=== PATIENT | female | born 1965 | race Caucasian/White ===

== ENCOUNTER 2019-10-12 17:25 | Emergency (ER) | payer BC, SELFPAY ==
--- NOTE | ~2019-10-12 | XR_ITS ---
EXAMINATION: XR chest 2V DATE: 10/12/2019 18:54 INDICATION: Racing heart. TECHNIQUE: PA and lateral views of the chest were obtained. COMPARISON: None FINDINGS: Mild biapical pleural-parenchymal scarring. Additional mild atelectasis/scarring at the right costoph renic angle. Small calcified nodules in the left midlung zone consistent with old granulomatous disea se. No pulmonary edema, pleural effusion or pneumothorax. The cardiomediastinal silhouette is normal. Mild thoracic spondylosis. IMPRESSION: 1. No acute cardiopulmonary disease. Reviewed, dictated and finalized at location A. WAY SIGNAL OPERATOR
--- NOTE | 2019-10-12 17:34 | ECG_ITS ---
Measurements Intervals [place] Rate: 108 P: 74 MO: 147 QRS: 63 QRSD: 86 T: 42 QT: 324 QTc: 435 Interpretive Statements SINUS TACHYCARDIA POSSIBLE LEFT ATRIAL ENLARGEMENT BASELINE WANDER- I, II, AVR, AVL, AVF ABNORMAL ECG Electronically Signed On 10-12-2019 18:31:55 INSULATION EXTRUDER OPERATOR by Faizan Covarrubias D.O.
[2019-10-12 17:46] VITALS: BP 135/95; PULSE 105; PULSE 108; RESP 15; TEMP 37; O2SAT 100
--- NOTE | 2019-10-12 18:05 | ED.ARRPALP ---
HPI - Arrhythmia/Palpitations General Chief Complaint: Arrhythmia/Palpitations Stated Complaint: heart racing Time Seen by Provider: 10/12/19 18:02 Source: patient and RN notes reviewed Mode of arrival: other Limitations: no limitations History of Present Illness HPI narrative: Pt is a 54 y/o female who presents to the ED with c/o heart racing that began this morning at 2 AM. Pt notes that her sx woke her up in the middle of the night and her sx were constant until 5 minutes ago. Pt states that her sx could be caused by her stress. Pt reports a similar episode, but she states that her sx lasted longer this episode. She recently got back from a vacation in [place]. Pt also reports a low appetite and sinus congestion, but denies dizziness, SOB, CP, fever, sore throat, diarrhea, and ear pain currently. complaint: heart racing Onset (ago): hour(s) Duration: now resolved Context: awoke with symptoms Associated symptoms: other (low appetite, sinus congestion) Treatments prior to arrival: other (none) Related Data Allergies Allergy/AdvReac Type Severity Reaction Status Date / Time No Known Allergies Allergy Uncoded 07/14/19 17:43 Review of Systems Review of Systems: All systems reviewed & are unremarkable except as noted in HPI and below Constitutional: Constitutional: Denies fever(s) and Reports poor appetite ENT: Denies otalgia (currently), Denies sore throat and Reports other (sinus congestion) Cardiovascular: Cardiovascular: Denies chest pain and Reports other (heart racing) Respiratory: Respiratory: Denies dyspnea Neurologic: Denies dizziness PMF Past Medical History Medical History (Updated 10/13/19 @ 00:00 by Jana Bowman) Healthy adult Surgical History Surgical History (Updated 10/12/19 @ 18:43 by Amanda Duron) History of hysterectomy Hx of tonsillectomy Family History Family History (Updated 04/24/16 @ 23:21 by DOCTOR UNKNOWN) Father Hypertension Mother Patient's mother is in good health Sibling Patient's sister is in good health Social History Social History (Updated 10/12/19 @ 18:39 by Amanda Duron) Smoking packs per day: 1 Smoking cigarettes per day: 20.0 Smoking status: Current every day smoker Tobacco type: cigarettes Alcohol intake: never Gender identity (if verbalized by the patient): Female Exam Const: General: no acute distress and alert Orientation/consciousness: patient oriented x3 HENMT: Head: normocephalic and atraumatic Ears: external ears normal, TM normal on the right and TM abnormal obstructed by cerumen (able to see small area of TM And it appears erythematous) on the left Mouth: Yes Normal oral and palatal mucosa present and Yes other (dry lips) Eyes: Conjunctivae: conjunctivae normal Pupils: Equal, round and reactive pupils present EOM: EOMs intact bilaterally Neck: Neck: normal visual inspection and no lymphadenopathy Chest: Chest palpation & inspection: normal inspection of the chest Resp: Effort & Inspection: normal respiratory effort, no retractions, not tachypneic and no use of accessory muscles Auscultation: clear to auscultation bilaterally Cardio: Rate: regular rate Rhythm: regular rhythm Heart sounds: no murmurs GI: Inspection: normal to inspection and non-distended GI Palp: No abdominal tenderness Auscultation: normal bowel sounds Skin: General skin exam: normal color Rashes: no rashes Neuro: General: patient oriented x3 and moves all extremities Course Reevaluation(s) Reevaluation #1: I Discussed with patient that labs are unremarkable other then mildly elevated wbc. She is having sinus pressure, headache and left ear pain with redness. Will start antibiotics. Date: 10/12/19 Time: 19:50 Vital Signs Vital signs: Vital Signs Temperature 98.6 F 10/12/19 17:46 Pulse Rate 108 H 10/12/19 17:46 Respiratory Rate 15 10/12/19 17:46 Blood Pressure 135/95 H 10/12/19 17:46 Pulse Oximetry
[2019-10-12 18:33] VITALS: BP 100/70; PULSE 102; RESP 20; O2SAT 97
[2019-10-12] MEDS: SODIUM CHLORIDE 0.9% IV 1,000 ML 999 ML IV CONT (18:33)
[2019-10-12 18:34] LABS: Basophils Absolute Auto 0.1 K/mm3 (0.0-0.1); Basophils Percent Auto 0.4 % (0.2-1.2); Eosinophils Percent Auto 0.2 % (0-4.4); Hemoglobin 15.2 g/dL (12.0-15.0); Immature Granulocyte Absolute 0.04 K/mm3 (0.00-0.031); Immature Granulocyte Percent A 0.3 % (0-0.5); Lymphocytes Absolute Auto 2.47 K/mm3 (0.9-3.2); Lymphocytes Percent Auto 19.4 % (18.3-44.2); Mean Corpuscular HGB Conc 32.3 g/dl (32-36); Mean Corpuscular Hemoglobin 29.6 pg (26-34); Mean Corpuscular Volume 91.4 fl (80-100); Mean Platelet Volume 10.5 fl (7.4-10.4); Monocytes Absolute Auto 0.9 K/mm3 (0.1-0.6); Monocytes Percent Auto 7.1 % (2.6-8.5); Neutrophils Absolute Auto 9.3 K/mm3 (1.3-6.7); Neutrophils Percent Auto 72.6 % (45.5-73.1); Platelet Count Result 321 k/mm3 (150-375); Red Blood Count 5.14 M/mm3 (4.2-5.4); Red Cell Distribution Width 12.7 % (11.5-14.5); White Blood Count 12.7 K/mm3 (4.5-10.0)
[2019-10-12 18:46] LABS: Alanine Aminotransferase 20 U/L (4-35); Albumin Level 4.9 g/dL (3.5-5.1); Alkaline Phosphatase 144 U/L (38-126); Aspartate Amino Transferase 24 U/L (14-36); Bilirubin,Total 0.3 mg/dL (0.2-1.3); Blood Urea Nitrogen 11 mg/dL (7-17); Carbon Dioxide 24 mmol/L (22-30); Chloride 103 mmol/L (98-107); Estimated CRCL calculation 92 ml/min; Estimated Glomerular Filt Rate > 60; Glucose 97 mg/dL (65-105); Magnesium 2.1 mg/dL (1.6-2.3); Potassium 3.5 mmol/L (3.4-5.0); Sodium 140 mmol/L (137-145)
[2019-10-12 19:03] LABS: Add Urine Microscopic? YES; Appearance Urine Clear (Clear); Bilirubin Urine Negative (Negative); Blood Urine 1+ (Negative); Color Urine Colorless (Yellow); Glucose Urine UA Negative (Negative); Ketones Urine Trace mg/dL (Negative); Leukocyte Esterase Ur Negative LEU/UL (Negative); Nitrate Urine Negative (Negative); Protein Urine Negative (Negative); RBC Urine 0-2 /hpf (0-2); Urobilinogen Urine Negative mg/dL (<2.0); WBC Urine 0-3 /hpf
[2019-10-12 19:13] LABS: Specific Grav Ur 1.004 (1.001-1.035)
[2019-10-12 19:20] LABS: D Dimer 0.27 ug/mL (<0.48)
[2019-10-12 20:13] VITALS: BP 104/68; PULSE 98; RESP 18; O2SAT 98
--- NOTE | 2019-11-06 13:40 | PC.NURSE ---
LATE ENTRY This note is being entered to document information to the patient's record. The following information was omitted on [10/12/2019], by [Hema Pineda RN. NS stopped at 1930
--- NOTE | 2019-11-06 13:45 | PC.NURSE ---
LATE ENTRY This note is being entered to document information to the patient's record. The following information was omitted on [10/12/2019], by [caitlyn]. NS complete at 1933.
== END 2019-10-12 20:16 | disposition home or self-care (01) ==
PROVIDERS: Emergency Provider General Practice; PCP Physician Assistant
DX: R00.2 Palpitations (principal); J06.9 Acute upper respiratory infection, unspecified; F17.210 Nicotine dependence, cigarettes, uncomplicated; R00.0 Tachycardia, unspecified; R94.31 Abnormal electrocardiogram [ECG] [EKG]
CPT/HCPCS: 36415; 71046; 80053; 81001; 83735; 84443; 85025; 85380; 93005; 96360; 99283; J7030

== ENCOUNTER 2020-08-15 06:53 | Outpatient (NON) | payer BC, SELFPAY ==
[2020-08-15 21:01] LABS: SARS-CoV-2 RNA PCR Negative
== END 2020-08-15 06:54 ==
PROVIDERS: PCP Physician Assistant; Visit Provider Physician Assistant
DX: R09.81 Nasal congestion (principal); Z20.828 Contact with and (suspected) exposure to other viral communicable diseases
CPT/HCPCS: 87635; C9803; U0003

== ENCOUNTER 2022-07-16 10:23 | Outpatient (CLI) | payer BC, SELFPAY ==
--- NOTE | ~2022-07-16 | XR_ITS ---
EXAMINATION: XR abdomen/kub 1V INDICATION: Right lower quadrant pain TECHNIQUE: Supine views of the abdomen were obtained on 2 radiographs. COMPARISON: Right lower quadrant pain FINDINGS: The bowel gas pattern is normal. No dilated loops of bowel are evident. There is questionab le hepatomegaly. The visualized lung bases are clear. There is mild osteoarthritis of the hips. Phleb oliths are noted in the pelvis. IMPRESSION: 1. No radiographic correlate for the patient's symptoms. 2. Possible hepatomegaly. Reviewed, dictated and finalized at location B.
[2022-07-16 11:25] LABS: Hematocrit 46.9 % (37.0-47.0); Hemoglobin 15.6 g/dL (12.0-15.0); Mean Corpuscular HGB Conc 33.3 g/dl (32-36); Mean Corpuscular Hemoglobin 30.9 pg (26-34); Mean Corpuscular Volume 92.9 fl (80-100); Mean Platelet Volume 10.1 fl (7.4-10.4); Platelet Count Result 305 k/mm3 (150-375); Red Blood Count 5.05 M/mm3 (4.2-5.4); Red Cell Distribution Width 12.3 % (11.5-14.5)
[2022-07-16 11:52] LABS: Alanine Aminotransferase 21 U/L (6-35); Albumin Level 4.7 g/dL (3.5-5.1); Alkaline Phosphatase 137 U/L (38-126); Anion Gap 7 mmol/L (8-16); Aspartate Amino Transferase 27 U/L (14-36); Bilirubin,Total 0.6 mg/dL (0.2-1.3); Blood Urea Nitrogen 11 mg/dL (7-17); CRP < 0.5 mg/dL (<1.0); Calcium 9.7 mg/dL (8.4-10.2); Carbon Dioxide 28 mmol/L (22-30); Chloride 104 mmol/L (98-107); Estimated Glomerular Filt Rate > 60; Glucose 93 mg/dL (65-110); Potassium 3.9 mmol/L (3.4-5.0); Sodium 139 mmol/L (137-145)
== END 2022-07-16 10:24 | disposition home or self-care (01) ==
PROVIDERS: PCP Physician Assistant; Visit Provider Nurse Practitioner
DX: R19.03 Right lower quadrant abdominal swelling, mass and lump (principal); R10.31 Right lower quadrant pain
CPT/HCPCS: 36415; 74018; 80053; 85027; 86140

== ENCOUNTER 2022-07-17 08:44 | Outpatient (CLI) | payer BC, SELFPAY ==
--- NOTE | ~2022-07-17 | CT_ITS ---
EXAMINATION: CT abdomen pelvis w con INDICATION: Right lower quadrant pain TECHNIQUE: Computed tomographic images of the abdomen and pelvis were obtained after the administrati on of 100 cc of Omnipaque 350 intravenous contrast. The dose-length product (DLP) was 244.61 mGy-cm. Automated exposure control and iterative reconstruction technique were employed. COMPARISON: None available FINDINGS: A calcified nodule of the right lower lobe is consistent with old granulomatous disease. Th e heart size is normal. The liver, spleen, pancreas, and gallbladder are normal. There is a 1.5 cm ma ss of the left adrenal gland. There is a 1.1 cm mass of the right adrenal gland. The kidneys are unre markable. There is calcified atherosclerosis of the aorta and many of the other arteries. No patholog ically enlarged abdominal or pelvic lymph nodes are identified. There appears to be mild wall thicken ing of the transverse colon which courses through the right lower quadrant. The appendix is normal. T here is a left inguinal hernia containing fat. There is mild lumbar spondylosis. A tiny fat-containin g umbilical hernia is noted. IMPRESSION: 1. Probable mild wall thickening of the transverse colon, which courses through the right lower quadr ant, which could reflect mild colitis. 2. Small umbilical and left inguinal hernias containing fat. 3. Bilateral adrenal masses measuring up to 1.5 cm, likely adenomas in the absence of known malignanc y. Consider follow-up adrenal protocol CT in 12 months. Reviewed, dictated and finalized at location B. IMPRESSION: 1. Probable mild wall thickening of the transverse colon, which courses through the right lower quadrant, which could reflect mild colitis. 2. Small umbilical and left inguinal hernias containing fat. 3. Bilateral adrenal masses measuring up to 1.5 cm, likely adenomas in the abse nce of known malignancy. Consider follow-up adrenal protocol CT in 12 months.
== END 2022-07-17 08:45 | disposition home or self-care (01) ==
PROVIDERS: PCP Physician Assistant; Visit Provider Nurse Practitioner
DX: K42.9 Umbilical hernia without obstruction or gangrene (principal); K40.90 Unilateral inguinal hernia, without obstruction or gangrene, not specified as recurrent
CPT/HCPCS: 74177; Q9967

== ENCOUNTER 2023-12-02 08:42 | Outpatient (CLI) | payer BC, SELFPAY ==
--- NOTE | ~2023-12-02 | CT_ITS ---
CT of the Abdomen and Pelvis: Indication: Adrenal mass Technique: 2.5 mm axial scans were obtained through the abdomen and pelvis prior to and following in travenous administration of 100 cc of Omnipaque 350. Dose reduction technique was used on this scan b y utilizing automated exposure control and iterative reconstruction technique. The dose-length produc t (DLP) was 759.54 mGy-cm. COMPARISON: 07/17/2022 Findings: Scans through the lung bases are unremarkable. The liver, spleen, pancreas, gallbladder, and kidneys are within normal limits. There are bilateral a drenal nodules measuring approximately 1.3 cm in diameter each. Right-sided nodule demonstrates low H [place] units on precontrast images, consistent with adenoma. Left nodule demonstrates washout valu es consistent with adenoma. There are atherosclerotic calcifications of the aorta. No lymphadenopath y. No bowel obstruction or bowel wall thickening. There is no evidence to suggest acute appendicitis. Images through the pelvis were performed. Urinary bladder unremarkable. No pelvic mass seen. No ascit es. Impression: Findings consistent with small bilateral adrenal adenomas, as detailed above, stable from prior exam. Reviewed, dictated and finalized at location M. NESS SOLUTIONS ARCHITECT Impression: Findings consistent with small bilateral adrenal adenomas, as detailed above, s table from prior exam.
== END 2023-12-02 08:43 | disposition home or self-care (01) ==
PROVIDERS: PCP Physician Assistant; Visit Provider Physician Assistant
DX: R19.09 Other intra-abdominal and pelvic swelling, mass and lump (principal); Z72.0 Tobacco use
CPT/HCPCS: 74178; Q9967

== ENCOUNTER 2024-10-10 10:57 | Outpatient (CLI) | payer BC, SELFPAY ==
--- NOTE | ~2024-10-10 | XR_ITS ---
XR abdomen/kub 1V Ordering provider: Selene Warner APRN History: . RUQ pain, abnormal bowel sounds . Comparison: None. FINDINGS: BOWEL: Nonobstructive bowel gas pattern. ORGANOMEGALY: None. SIGNIFICANT PATHOLOGIC CALCIFICATIONS: None. OTHER: No free air is seen under the diaphragm. Mild levoscoliosis. IMPRESSION: NO ACUTE ABDOMINAL FINDINGS. Reviewed, dictated and finalized at location A. CAL INSURANCE CODER
== END 2024-10-10 10:58 | disposition home or self-care (01) ==
PROVIDERS: PCP Physician Assistant; Visit Provider Nurse Practitioner
DX: R10.11 Right upper quadrant pain (principal); K58.9 Irritable bowel syndrome, unspecified; R19.5 Other fecal abnormalities
CPT/HCPCS: 74018

== ENCOUNTER 2024-12-27 00:07 | Day surgery (SDC) | payer BC, SELFPAY ==
[2024-12-20 08:48] VITALS: BMI 24.7
--- OUTSIDE RECORDS SUMMARY | 2024-12-27 00:10 | XMS_ITS | Data Portability ---
Author Organization [facility] DELFINOSeth Vega Address [address] [place] [address] Care Team Providers Care Color Matcher Name Role Phone NADEGE HARRY Primary Care Provider Unavailab le Assessment No assessment recorded. Plan of Treatment Reminders Order Date Submit Date Provider Last Modified By Organization Details Last Modified Time Details Appointments None recorded. Lab TSH + free T4, serum 2023 024 [email or web address] [facility], [address], [place], [address], 5 09:59:52 lipid panel, serum 2023 024 [email or web address] [facility], [address], [place], [address], 5 09:59:52 CMP, serum or plasma 2023 024 [email or web address] [facility], [address], [place], [address], 5 09:59:53 CBC w/ auto diff 2023 024 [email or web address] [facility], [address], [place], [address], 5 09:59:53 vitamin B12 + folate, serum or blood 2023 024 [email or web address] [facility], [address], [place], [address], 5 09:59:53 iron + TIBC + ferritin, serum 2023 [email or web address] [facility], [address], [place], [address], 5 09:59:53 HbA1c (hemoglobi n A1c), blood 2023 024 [email or web address] [facility], [address], [place], [address], 5 09:59:52 Referral general surgeon referral - pt did have CT scan 2022 that references hernia 2023 [facility] - General Surgery, [address], [place], [address], 4 13:21:49 Procedures colonoscop y procedure (PROC) 2023 024 [facility] Gastroenterol [facility]gy, [address], [address], [place], [address], 5 14:38:22 Surgeries None recorded. Imaging LDCT, chest, for lung cancer screening 2023 [facility] (Imaging), [address], [place], [address], 5 11:08:49 Medication Orders None recorded. Patient TargetsNo targets recorded. Patient InstructionsNo instructions recorded. Reason for Referral General Surgeon Referral for Left inguinal hernia pt did have CT scan 2022 that references hernia Referring Physician: Nadege Harry, Internal Medicine, Encounter Date: 05/05/2024 Results Created Date Observation Date Name Description Value Unit Range Abnormal Flag Note LastModifiedBy Organization Detail LastModifiedTime 12/07/1912/08/2024 Skin Patho logy biops y repor t pathology report.secti on heading Dermat opatho logy Report Case: [id number] Author christie Borden er: BrownYin PA Collec mir: 2024 01:39 PM Orderi ng Locati on: [facility] - Receiv ed: 2024 01:39 PM Dermat ology Pathol ogist: Madison Frausto MD Specim en: Skin, right fh Case Repor t [place] [facility] top[facility] holog y Repor t Case: [id number] Autho korymari g Provi cassie: Rocio De Oliveira, FRANCI Cuevas cted: 12/06 01:39 PM Order ing Locat ion: [facility] - Recei ludmila: 12/06 01:39 PM [place] [facility] tolog y Patho logis t: Michael Frausto in [place] rai MD Speci men: Skin, right fh 12/08 4:23 PM CDT [facility] Not Available Not Available 12/26/2024 11:35:18 12/07/19 25 12/08/2024 Skin Patho logy biops y repor t pathology report final diagnosis narrative Specim en A. SKIN, right fh: BENIGN VERRUC OUS KERATO SIS, INFLAM ED (L82.1 ) Final Diagn osis Speci men A. SKIN, right fh: BENIG N VERRU COUS KERAT OSIS, INFLA MED (L82. 1) 12/08 4:23 PM CDT [facility] Elect sue wren d by Michael Frausto MD on 2024 at 4:23 PM Not Available Not Available 12/26/2024 11:35:18 12/07/19 25 12/08/2024 Skin Patho logy biops y repor t pathology report relevant history narrative ISK vs VV Clini tammy Histo ry ISK vs VV 12/08 4:23 PM CDT [facility] Not Available Not Available 12/26/2024 11:35:18 12/07/19 25 12/08/2024 Skin Patho logy biops y repor t pathology report gross observation narrative Specim en A: Receiv ed is one formal in filled contai ner labele d with the patien t's name and design ated right fh. The specim en consis ts of a shave biopsy measur ing 8x7x2 mm. Jar 0. Gross Descr iptio n Speci men A: Recei ludmila is one forma sandy fille d conta iner label ed with the patie nt's name and desig nated right fh. The speci men consi sts of a shave biops y measu ring 8x7x2 mm. Jar 0. 12/08 4:23 PM CDT [facility] Not Available Not Available 12/26/2024 11:35:18 12/07/19 25 12/08/2024 Skin Patho logy biops y repor t pathology report microscopic observation narrative other stain Specim en A. SKIN, right fh: Sectio ns show hyperk eratos is, papill omatos is, hyperg ranulo sis, and acanth osis. Inflam matory cells are presen t within the dermis . These histol ogical findin gs can be seen in a verruc a vulgar is or a seborr heic kerato sis. Micro scopi c Descr iptio n Speci men A. SKIN, right fh: Secti ons show hyper kerat osis, papil lomat osis, hyper granu losis , and acant hosis . Infla mmato ry cells are prese nt withi n the dermi s. These histo logic al findi ngs can be seen in a verru ca vulga ris or a sebor rheic kerat osis. 12/08 4:23 PM CDT [facility] Not Available Not Available 12/26/2024 11:35:18 12/07/19 25 12/08/2024 Skin Patho logy biops y repor t service comment An melt house supervisor al and hr internship al positi ve and negati ve contro ls are approp riate for the histoc hemica l, immuno histoc hemica l and immuno fluore scence stain( s) in this case (if any), except where stated explic itly. The perfor laura charac terist ics of the stain( s) cited in this report were develo ped and its perfor laura charac terist ic determ ined by the [facility]ermat [facility]atho logy Labor[facility] at [facility] sit, direct ed by Dr. Ginger Maldonado . These tests need not be, and theref ore are not, approv ed by the [facility] Food and Drug Admini suzannati on. The tests are used for clinic al purpos es. Billin g Codes Specim en Charge s Stain Charge s [id number] 1 Discl aimer An exter nal and inter nal posit roland and negat roland contr ols are appro priat e for the histo chemi tammy, immun ohist ochem ical and immun ofluo resce nce stain (s) in this case (if any), excep t where state d expli citly . The perfo rmanc e ayana cteri stics of the stain (s) cited in this repor t were devel oped and its perfo rmanc e ayana cteri stic deter mined by the [place] [facility] , direc mir by Dr. Ginger Campbell. These tests need not be, and there fore are not, appro ludmila by the [facility] Food and Drug Admin istra tion. The tests are used for clini tammy purpo ses. Jose ng Codes Speci [place] Charg [place] [id number] 1 12/08 4:23 PM CDT DER[facility] TOPAT [facility]OLOG Y LABOR AT[facility] Not Available Not Available 12/26/2024 11:35:18 12/07/19 25 12/08/2024 Skin Patho logy biops y repor t embedded images Embed ded Image s 12/08 4:23 PM CDT [facility] TOPAT [facility]OLOG [facility] LAB[facility] Not Available Not Available 12/26/2024 11:35:18 05/04/20 24 05/03/2024 MAMMO , scree razia, digit al, bilat eral No observ ation record ed. [address], [address], 05/04/2024 14:53:38 Result Notes None recorded. Problems Name Problem SNOMED Code Status Onset Date Resolution Date Notes Provider Name and Address Organization Details Recorded Time Left inguinal hernia 705102572 Active 024 FRANCI Hickman Attn: Accounting ,[address] [facility], [place], [address] , [facility] - [place] 4 22:58:39 Smoker 11936079 Active 024 FRANCI Hickman Attn: Accounting ,[address] [facility], [place], [address] , [facility] - [place] 4 22:58:48 Loss of hair 726626355 Active 024 FRANCI Hickman Attn: Accounting ,[address] [facility], [place], [address] , [facility] - [place] 4 22:58:58 Body mass index 20-24 - normal 582930140 Active FRANCI Hickman Attn: Accounting ,[address] [facility], [place], [address] , [facility] - [place] 4 22:59:05 Problem Notes None recorded. Procedures Surgical History Date Name Laterality Status Provider Name and Address Organization Details Recorded Time Tonsillectomy completed Rosita Azevedo MA [facility] 05/05/2024 12:08:19 hysterectomy completed Rosita Azevedo MA [facility] 05/05/2024 12:08:28 Imaging Results Imaging Date Name Status LastModified by Organiz ation Details LastModified Time 05/03/2024 MAMMO, screening, digital, bilateral completed [email or web address] [facility] [address] [place] [address], [address], 05/04/2024 14:53:38 Procedure Notes None recorded. Medical Equipment None Reported. Allergies No known drug allergies Medications Name Sig Start Date Stop Date Status Note LastModified by Organization Details LastModified Time amoxicillin 875 mg tablet TAKE 1 TABLET EVERY 12 HOURS DAILY 05/05 completed Not Available Not Available Not Available erythromyci n 5 mg/gram (0.5 %) eye ointment APPLY 1 CM RIBBON INTO THE LOWER CONJUNCTI XI SAC(S) IN THE AFFECTED EYE(S) 3 TIMES PER DAY active Not Available Not Available No t Available finasteride 1 mg tablet TAKE 1 TABLET BY MOUTH EVERY DAY active Not Available Not Available No t Available Vitals Date Recorded Body height Body mass index (BMI) Body weight Respiratory rate Oxygen saturation Oxygen saturation in Arterial blood by Pulse oximetry Heart rate Systolic blood pressure Diastolic blood pressure Provider Name and Address Organization Details Last Updated DateTime 4 161.93 cm 24.9 kg/m2 45500.4 4 g 20 /min 97 % 97 % 76 /min 142 mm[Hg] 88 mm[Hg] Rosita Azevedo MA [facility] 4 12:13:22 Date Recorded Systolic blood pressure Diastolic blood pressure Provider Name and Address Organization Details Last Updated DateTime 05/05/2024 120 mm[Hg] 80 mm[Hg] FRANCI Hickman Attn: Accounting,[address] [place], [address], [facility] 05/05/2024 12:44:09 Social History Question Answer Notes LastModified by Organizat ion Details LastModified Time Tobacco Smoking Status Current Every Day Smoker Rosita Azevedo MA null, [facility] 05/05/2024 12:07:19 Do You Have An Advance Directive? No Information not available 05/05/2024 What Is Your Level Of Alcohol Consumption? Occasional Wine Information not available 05/05/2024 Are You Blind Or Do You Have Difficulty Seeing? No Readers Information not available 05/05/2024 What Is Your Level Of Caffeine Consumption? Moderate Coffee Information not available 05/05/2024 In The 14 Days Before Symptom Onset, Have You Had Close Contact With A Laboratory-confir med COVID-19 While That Case Was Ill? No Information not available 05/04/2024 In The 14 Days Before Symptom Onset, Have You Had Close Contact With A Person Who Is Under Investigation For COVID-19 While That Person Was Ill? No Information not available 05/04/2024 Have You Been To An Area Known To Be High Risk For COVID-19? No Information not available 05/04/2024 Are You Deaf Or Do You Have Serious Difficulty Hearing? No Information not available 05/05/2024 What Type Of Diet Are You Following? REGULAR Information not available 05/05/2024 Are There Any Guns Present In Your Home? No Information not available 05/05/2024 What Was The Date Of Your Most Recent Tobacco Screening? 05/05/2024 Information not available 05/05/2024 What Is Your Current Pack Years? 20-29packyears Information not available 05/05/2024 What Is Your Relationship Status? Information not available 05/05/2024 Do You Use Your Seat Belt Or Car Seat Routinely? Yes Information not available 05/05/2024 Do You Have Smoke And Carbon Monoxide Detectors In Your Home? Yes Information not available 05/04/2024 At What Age Did You Start Smoking Tobacco? 17 Information not available 05/05/2024 How Much Tobacco Do You Smoke? 1 PPD Information not available 05/05/2024 Do You Feel Stressed (tense, Restless, Nervous, Or Anxious, Or Unable To Sleep At Night)? AC9541-4 Information not available 05/05/2024 Do You Use Any Illicit Or Recreational Drugs? No Information not available 05/05/2024 Do You Use Sunscreen Routinely? Yes Spf 30 Information not available 05/05/2024 Has Tobacco Cessation Counseling Been Provided? Yes Information not available 05/05/2024 On What Date Was Tobacco Cessation Counseling Provided? 05/05/2024 Information not available 05/05/2024 Do You Or Have You Ever Used Any Other Forms Of Tobacco Or Nicotine? No Information not available 05/05/2024 Sex: Female Functional Status Question Answer Note LastModified by Organization D etails LastModified Time Are you able to care for yourself? Yes Information not available 05/04/2024 What is your exercise level? Moderate walk Information not available 05/05/2024 Mental Status None recorded. Family History Relationship Description Onset Age of this Age Resolved Age Notes LastModified by Organization Details LastModified Time Father Alcohol abuse [email or web address] Not available 2023 12:09:10 Father Cerebrovascu lar accident [email or web address] Not available 05/2024 12:09:25 Father Dementia [email or web address] Not availabl e 05/05/2024 12:09:33 Father Hypercholest erolemia [email or web address] Not available 2023 12:09:37 Sister Attention deficit hyperactivit y disorder [email or web address] Not available 05/05 12:09:15 Medical History Condition Response Coronary Artery Disease N Other N Atrial Fibrillation N High Blood Pressure N Depression N COPD N Blood Clots N Anxiety Disorder N Muscle, Joint, or Bone Problems N Acid Reflux (GERD) N Cancer N Stroke N High Cholesterol N Liver Disease N Headaches N Kidney or Bladder Problems N Thyroid Problems N GI Problems N Have you had a mammogram in the last yea r? N Skin Problems N Anemia N Heart Attack (ID) N Diabetes N Seizures/Epilepsy N Have you had a colonoscopy in the last 1 0 years? N Asthma N Allergies N Have you had a PSA blood test in the las t year? N Hepatitis N Osteoporosis N Heart Failure N Gynecological History Statement/Question Response Menses Monthly N Current Control Method Other Obstetrics History GPAL:G 4 P 2 0 0 2 Type Value Full Term 2 Induced 0 Spontaneous 0 Premature 0 Living 2 Total 4 Past Encounters Encounter ID Performer Location Encounter Start Date Encounter Closed Date Diagnosis/Indication Diagnosis SNOMED-CT Code Diagnosis ICD10 Code Diagnosis Note [id number] FRANCI Hickman [facility] e [facility] [address] [facility] [address] [place] [address] 05/05/2024 11:39:53 05/05/2024 13:15:04 Body mass index 20-24 - normal 834391922 Z68.24 BMI is stable Screening for malignant neoplasm of colon 472945820 Z12.11 Referral for colonoscop y that is due Adult heal th examination 008656465 Z00.01 Annual wellness exam complete Loss of hair 642072969 L 65.9 Screening vitamin B12, folate and iron studies with progressio n of generalize d hair loss Smoker 85202993 F17.200 Smoking history that is ongoing, refer for low-dose CT of the chest Left inguinal hernia 236 597065 K40.90 Refer to general surgery for left inguinal hernia evaluation and treatment plan Cholesterol screening 27 6721822 Z13.220 Fasting lipid panel is due Diabetes m ellitus screening 937066669 Z13.1 Annual A1c screening is due for diabetes risk assessment Thyroid di sorder screening 665700543 Z13.29 Annual thyroid function panel due Long-term drug therapy 409332578 Z79.899 Routine CBC and CMP are due Health Concerns Section Related Observation LastModified by Organization Detai ls LastModified Time None Recorded Concern Status LastModified by Organization Details LastModified Time None Recorded Advance Directives Directive N: Payers Encounter Date Sequence Insurance Name Policy Number Policy Meek Covered Member ID Meek Member ID Guarantor Name 05/05/2024 1 [place] [employer] ([place]) [address] Mc[address]on [id number] Prema Mckeon Notes Date Note Type Note Provider Name and Address Organization Details Recorded Time 05/05/2024 text/html Patient is here for annual wellness exam. She does have report of hair loss despite proper nutrition and hydration. She would like to have some labs to evaluate that a little bit further. She is a current smoker. She is due for colonoscopy and she would like to see a surgeon for her hernia. FRANCI Hickman Attn: Accounting,[address] [facility], [place], [address], [facility] - [facility] 05/22/2024 22:59:37 OBGyn Episode No OBEpisode recorded.
--- OUTSIDE RECORDS SUMMARY | 2024-12-27 00:10 | XMS_ITS | CONTINUITY OF CARE DOCUMENT ---
Author Name jeannajersonromelvelvet Address Unknown Organization [facility] Address [address] [facility] [address] [place] [address] Phone [phone] Care Team Providers Care Director Inpatient Headache Program Name Role Phone Rudolph Carrasco MD Unavailable [phone] T[address] BROCK Unavailable [phone] TOMMY BROCK Unavailable PROBLEMS Condition Status Date Provider Notes Chest pain active Yessy Dickinson VITAL SIGNS Date Observation Value Provider blood pressure, diastolic 90 mm[Hg] Me margo Lynn blood pressure, systolic 126 mm[Hg] Krystyna Lynn SOCIAL HISTORY Date Observation Value Provider smoking status Current every day smoker M tiffany Lynn FUNCTIONAL STATUS Date Observation Value Provider periodic limb movement index absent (0) Lisa Lynn INSURANCE PROVIDERS Payer name Policy type / Coverage type [place] [employer] party ID [facility] [id number] HISTORY OF PROCEDURES Procedure Date Procedure Name Provider Procedure Notes S tatus Stress EKG Rudolph Carrasco MD complet ed
--- OUTSIDE RECORDS SUMMARY | 2024-12-27 00:10 | XMS_ITS | Referral Summary ---
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 Throat tightness 11/08/2020 Epistaxis 11/08/2020 Torticollis 11/27/2019 Chronic infection of sinus 07/30/2016 Deviated nasal septum 07/30/2016 Impacted cerumen 07/30/2016 Atopic rhinitis 03/14/2014 Overview (12/31/2016): Allergic rhinitis Onychomycosis 11/17/2011 Social History Tobacco Use Types Packs/Day Years Used Date Smoking Tobacco: Every Day Cigarettes Passive Smoke Exposure: Current Smokeless Tobacco: Never Tobacco Cessation:Ready to Q uit: Not Asked; Counseling Given: Not Answered Comments:Smoking History Packs/day: 1 Packs Alcohol Use Standard Drinks/Week Comments Yes 0 (1 standard drink = 0.6 oz pur e alcohol) rare Personal Safety Answer Date Recorded Getting School Help Needed Not on file 11/26 Comments No Sex and Gender Information Value Date Recorded Sex Assigned at Not on file Legal Sex Female 3:18 AM 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 Gender Identity Female 06/10/2021 7:33 AM CDT Sexual Orientation Straight 06/10/2021 7: 33 AM CDT 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 Not on file N ot on file Not on file Last Filed Vital Signs Vital Sign Reading Time Taken Comments Blood Pressure 126/79 04/09/2023 1:41 PM CDT Pulse 80 09/28/2022 9:36 AM 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 Temperature 36.8 C (98.3 F) 09/28/2022 9:36 AM 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 Respiratory Rate 18 09/28/2022 9:36 AM 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 Oxygen Saturation 98% 09/28/2022 9:36 AM 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 Inhaled Oxygen Concentration - - Weight 59 kg (130 lb) 04/09/2023 1:41 PM CDT Height 160 cm (5' 3 ) 04/09/2023 1:41 PM CDT Body Mass Index 23.03 04/09/2023 1:41 PM CDT Plan of Treatment Not on file Procedures Procedure Name Priority Date/Time Associated Diagnosis Comments SCREENING MAMMOGRAM BILATERAL W DMITRY Schedule Routine, Read Routine (OP Routine) 05/03/2024 11:01 AM CDT Screening mammogram, encounter for THINPREP IMAGING PAP AND HPV MRNA E6/E7 REFLEX HPV 16,18/45 Routine 02/23/2023 10:47 AM CDT Well woman exam from Last 3 Months or Most Recently Relevant to Health Maintenance Results * Screening Mammogram Bilateral W Dmitry (05/03/2024 11:01 AM CDT) Anatomical Region Laterality Modality Breast Bilateral Mammography Narrative 05/04/2024 10:38 AM CDT Mammogram Technique: Bilateral Digital Breast Tomosynthesis, Bilateral C-view 2D Screening mammogram. Views obtained: bilateral craniocaudal and bilateral mediolateral oblique. Computer Aided Detection was performed. Mammogram Findings: The present examination has been compared to prior imaging studies performed at [facility] on 07/21/2018, 08/09/2021 and 12/28/2022. There are scattered areas of fibroglandular density. There is no suspicious abnormality in either breast. Impression: There is no mammographic evidence of malignancy. Annual screening mammography is recommended. OVERALL FINAL ASSESSMENT: BI-RADS CATEGORY 1: Negative. Procedure Note Tere Mullen MD - 05/04/2024 Mammogram Technique: Bilateral Digital Breast Tomosynthesis, Bilateral C-view 2D Screening mammogram. Views obtained: bilateral craniocaudal and bilateral mediolateral oblique. Computer Aided Detection was performed. Mammogram Findings: The present examination has been compared to prior imaging studies performed at [facility] on 07/21/2018, 08/09/2021 and 12/28/2022. There are scattered areas of fibroglandular density. There is no suspicious abnormality in either breast. Impression: There is no mammographic evidence of malignancy. Annual screening mammography is recommended. OVERALL FINAL ASSESSMENT: BI-RADS CATEGORY 1: Negative. us Self Screening Mammogram IMG MAMMO PROCEDURES Fi nal Result * ThinPrep(R) Imaging Pap and HPV mRNA E6/E7 Reflex HPV 16,18/45 (02/23/2023 10:47 AM CDT) CLINICAL INFORMATION: [facility] Comment:Hysterectomy LMP [facility] Comment:None given Previous Pap [facility] Comment:None given Prev. Bx [facility] Comment:None given SOURCE: [facility] Comment:None given Pap, specimen adequacy [facility] Comment: Satisfactory for evaluation. Endocervical/transformation zone component present. Age and/or menstrual status not provided HPV interp [facility] Comment:Negative for intraep ithelial lesion or malignancy. COMMENTS [facility] Comment: This Pap test has been evaluated with computer assisted technology. Cloud Physicist Aries [facility] Comment: MARGARITA DIAZ(ASCP) CT Screening Location: [place] [address] [place] [address] Comment [facility] Comment: EXPLANATORY NOTE: The Pap is a screening test for cervical cancer. It is not a diagnostic test and is subject to false negative and false positive results. It is most reliable when a satisfactory sample, regularly obtained, is submitted with relevant clinical findings and history, and when the Pap result is evaluated along with historic and current clinical information. Human papillomavirus RNA, High Risk E6/E7 Not Detected Not Detected [email or web address] Comment: Methodology: Supervisor Phosphoric Acid-Mediated Amplification This assay detects E6/E7 viral messenger RNA (mRNA) from 14 high-risk HPV types (16,18,31,33,35,39,45,51,52,56,58,59,66,68). Cervical sources are required for HPV testing. If a vaginal source from a patient who has had a total hysterectomy with removal of cervix was submitted, please contact the testing laboratory for alternative testing options. For additional information, please refer to http://education.MollyWatr/faq/CYD735j6 (This link if provided for information/ educational purposes only.) Vaginal 02/23/2023 10:4 7 AM CDT 02/24/2023 3:31 AM CDT Fidelia Landaverde MD LAB CYTOLOGY ORDERABLES [facility] al Result [facility] [address] [place] [address] [email or web address] [address] [place] [address] from Last 3 Months or Most Recently Relevant to Health Maintenance Insurance [facility] Member Subscriber Plan / Payer (Ef fective 1996-Present) Name:Prema Casiano Relation to Subscriber:Spouse Name:CHANTE CASIANO Date of :1969 (Home) Address: [facility] [place] [address] Payer ID:[id number] (NAIC) Group ID:[id number] Type: ANGEL Address: [address] [employer] [facility] FED[employer]AL [facility] [employer] Care Teams Education Specialist Relationship Specialty Start Date End Date Nadege Regalado PA [address] [place] [address] PCP - General Physician Stores Assistant 05/03/24 [place] [address] [place] [address] Consulting Physician Obstetrics and Gynecology 04/13/23
--- OUTSIDE RECORDS SUMMARY | 2024-12-27 00:10 | XMS_ITS | Clinical Summary ---
Author Organization [place] [address] [facility] Address [facility] [place] [address] Care Team Providers Care Proposal Review Analyst Name Role Phone Fidelia Landaverde MD Unavailable [phone] Nadege Regalado Primary Care Pr ovider Allergies [...] 03/14/2014 Overview (12/31/2016): Allergic rhinitis Onychomycosis 11/17/2011 Surgical History Surgery Date Site/Laterality Comments TONSILLECTOMY HYSTERECTOMY 09/27/2004 - 09/26/2005 partial hysterectomy, bilat ovaries in place RECTOCELE REPAIR 09/27/2004 - 09/26/2005 Medical History Medical History Date Comments Hx Other Medical Allergies, seas onal; Comments: DNT 03/14/2014 - Allergic rhinitis Anxiety Family History Medical History Relation Name Comments Hypertension Father Hypertension; / Family history of hypertension - (Added by TW Conv) Stroke Father Stroke; /Family history of cerebrovascular accident (CVA) - (Added by TW Conv) Sudden Cardiac Father Heart attack Mother Family history of myocardial infarction - (Added by TW Conv) Hypertension Mother Family history of hypertension - (Added by TW Conv) Stroke Mother Family history of cerebrovascular accident (CVA) - (Added by TW Conv) Sudden Cardiac Mother Hypertension Sister Family history of hypertension - (Added by TW Conv) Breast cancer Neg Hx Ovarian cancer Neg Hx Relation Name Status Comments Father Mother Sister Social History Tobacco Use Types Packs/Day Years [...] on file Legal Sex Female 3:18 AM TEST BAKER Gender Identity Female 06/10/2021 7:33 AM CDT Sexual Orientation Straight 06/10/2021 7: 33 AM CDT 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 Not on file N ot on file Not on file Obstetrics History Para Term AB IAB SAB Ectopic Multiple Livin g Live Births 4 2 2 2 2 2 2 Date Outcome GA Total Labor Labor/2nd/3rd Weight Sex Type Anes PTL Shannan A1 A5 Name Clin 1995 Term M Vag-S pont Living 1997 999 Term F Vag-S pont Living Comments:Arabella Mahmood Last Filed Vital Signs Vital Sign Reading Time Taken Comments Blood Pressure 126/79 04/09/2023 1:41 PM CDT Pulse 80 09/28/2022 9:36 AM TEST BAKER Temperature 36.8 C (98.3 F) 09/28/2022 9:36 AM TEST BAKER Respiratory Rate 18 09/28/2022 9:36 AM TEST BAKER Oxygen Saturation 98% 09/28/2022 9:36 AM TEST BAKER Inhaled Oxygen Concentration - - Weight 59 kg (130 lb) 04/09/2023 1:41 PM CDT Height 160 cm (5' 3 ) 04/09/2023 1:41 PM CDT Body Mass Index 23.03 04/09/2023 1:41 PM CDT Plan of Treatment Health Maintenance Due Date Last Done Comments Colon Cancer Screening-Colonoscopy 1965 Depression Screening 1965 Hepatitis C Screening 1965 DTaP/Tdap/Td Vaccine (1 - Tdap) 1976 Hepatitis B Screening 1983 Pneumococcal vaccine <65 (1 of 2 - PCV) 1984 Zoster Vaccine (1 of 2) 2015 Regular Well Visit/Exam 18-64 02/24/2024, 02/17/2022, 11/13/2019 Covid-19 Vaccine (4 - 2023-2 5 season) 2024 09/16/2021, 01/03/2021, 12/12/2020 Influenza Vaccine (#1) 2024 Breast Cancer Screening-Mammogram 05/03/2025 05/03/2024, 12/28/2022, 08/09/2021, Additional history exists Cervical Cancer Screening Discontinued 02/23/2023, Procedures Procedure Name Priority Date/Time Associated Diagnosis [...] compared to prior imaging studies performed at [facility] on 07/21/2018, 08/09/2021 and 12/28/2022. There are [...] compared to prior imaging studies performed at [facility] on 07/21/2018, 08/09/2021 and 12/28/2022. There are [...] 16,18/45 (02/23/2023 10:47 AM CDT) CLINICAL INFORMATION: [facility] Comment:Hysterectomy LMP [facility] Comment:None given Previous Pap [facility] Comment:None given Prev. Bx [facility] Comment:None given SOURCE: [facility] Comment:None given Pap, specimen adequacy [facility] Comment: Satisfactory for evaluation. Endocervical/transformation zone component present. Age and/or menstrual status not provided HPV interp [facility] Comment:Negative for intraep ithelial lesion or malignancy. COMMENTS [facility] Comment: This Pap test has been evaluated with computer assisted technology. Food Dehydrator Operator Aries [facility] Comment: MARGARITA DIAZ(ASCP) CT Screening Location: [place] [address] [place] [address] Comment [facility] Comment: EXPLANATORY NOTE: The Pap is a [...] High Risk E6/E7 Not Detected Not Detected [facility] Comment: Methodology: Ancillary Services Manager-Mediated Amplification This assay detects E6/E7 viral messenger RNA (mRNA) from 14 high-risk HPV types (16,18,31,33,35,39,45,51,52,56,58,59,66,68). Cervical sources are required for HPV testing. If a vaginal source from a patient who has had a total hysterectomy with removal of cervix was submitted, please contact the testing laboratory for alternative testing options. For additional information, please refer to http://education.Planet DDS/faq/AMI940i9 (This link if provided for information/ educational purposes only.) Vaginal 02/23/2023 10:4 7 AM CDT 02/24/2023 3:31 AM CDT Fidelia Landaverde MD LAB CYTOLOGY ORDERABLES Fin al [facility] [address] [place] [address] [facility] [address] [place] [address] from Last 3 Months or Most Recently Relevant to Health Maintenance Insurance [facility] Member Subscriber Plan / Payer (Ef fective 1996-Present) Name:Tushar Casiano Relation to Subscriber:Spouse Name:CHANTE CASIANO Date of :1969 (Home) Address: [facility] [place] [address] Payer ID:[id number] (NAIC) Group ID:[id number] Type:[facility] Address: [address] [employer] [facility] [employer] [facility] [employer] Care Teams Proposal Review Analyst Relationship Specialty Start Date End Date Nadege Regalado PA [address] [place] [address] PCP - General Physician Digester Capper 05/03/24 [place] [address] [place] [address] Consulting Physician Obstetrics and Gynecology 04/13/23
--- OUTSIDE RECORDS SUMMARY | 2024-12-27 00:10 | XMS_ITS | Encounter Summary ---
Author Organization [facility] Healthcare Address [address] [place] [address] Care Team Providers Care Virtualization Engineer Name Role Phone Nadege Regalado Primary Care Pr ovider Ksenia Bartlett MD Primary Care Provider [phone] Nadege Regalado Primary Care Pr ovider Fidelia Landaverde MD Unavailable [phone] No, Physician Primary Care Provider [phone] Nadege Regalado Primary Care Pr ovider Encounter Details Date Type Department Care Team (Late st Contact Info) Description 02/23/[address] [place] [address] Jo Yo, RT Social History Tobacco Use Types Packs/Day Years Used Date Smoking Tobacco: Every Day Smokeless Tobacco: Never Comments:Smoking History Pac ks/day: 1 Packs Alcohol Use Standard Drinks/Week Comments Yes 0 (1 standard drink = 0.6 oz pur e alcohol) rare Comments No Sex and Gender Information Value Date Recorded Sex Assigned at Not on file Legal Sex Female 3:18 AM LEAD SOFTWARE DEVELOPMENT ENGINEER Gender Identity Female 06/10/2021 7:33 AM CDT Sexual Orientation Straight 06/10/2021 7: 33 AM CDT 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 on file N ot on file Not on file documented as of this encounter Plan of Treatment Not on file documented as of this encounter Visit Diagnoses Not on filedocumented in this encounter Additional Health Concerns Infection Onset Date Last Indicated Resolved Time COVID: Suspected 09/28/2022 09/28/2022 09/28/2022 9:51 AM LEAD SOFTWARE DEVELOPMENT ENGINEER Influenza, adult 09/28/2022 09/28/2022 10/05/2022 3:05 AM LEAD SOFTWARE DEVELOPMENT ENGINEER documented as of this encounter Care Teams Virtualization Engineer Relationship Specialty Start Date End Date Nadege Regalado PA PCP - General 06/27/18 10/30/20 Ksenia Bartlett MD [employer] [place] [address] PCP - General Internal Medicine 10/31/20 02/04/21 Nadege Regalado PA PCP - General Physician Supervisor Show Operations 02/05/21 02/02/24 No, Physician PCP - General 03/07/24 05/02/24 Nadege Regalado PA [address] [place] [address] PCP - General Physician Supervisor Show Operations 05/03/24 [place] [address] [place] [address] Consulting Physician Obstetrics and Gynecology 04/13/23 documented as of this encounter
--- OUTSIDE RECORDS SUMMARY | 2024-12-27 00:10 | XMS_ITS | Continuity of Care Document ---
Author Organization [facility] Address [address] [facility] [address] [place] [address] Phone Care Team Providers Care Opto Mechanical Engineer Name Role Phone Carter PT,MPT,ATC, Osmar Unavailable Unavai lable Procedures Procedure Date PT Evaluation Moderate Complexity Therapeutic Activities Therapeutic Exercise Advance Directives Directive Yes / No Effective Date File Name No Information Encounters Encounter Description Practice Location Reason(s) For Visit Diagnoses Date Provider Providers Copied on Encounter [facility], [address], [id number], tel:[phone] Success No Information [place], . [facility], [address] [place] [address], [id number], tel:[phone] Success No Information 4 Carter Hogan [facility]. Referring Provider: Alin Ramos, [address] [place] [address] [address], [place], [address]. tel:[phone] Family History Family Member Type Diagnosis Age At Onset No Information Payers Payer name Insurance type Covered libertarian ID Authorwaynea noah(s) [facility] [id number] Social History Type Description Quantity Date Captured Comments Sex Female Smoking Status No Information Chief Complaint And Reason For Visit No Information Reason For Referral Reason For Referral No Information History Of Present Illness Encounter Date Complaint History Of Prese nt Illness No Information Functional Status Date Functional Assessmen t No Information Instructions Date Instruction Additional Infor mation No Information Assessments Type Assessment Date No Information Patient Care Teams Name Effective Dates (start - stop) Status Members No Information
--- OUTSIDE RECORDS SUMMARY | 2024-12-27 00:10 | XMS_ITS | Clinical Summary ---
Author Organization [facility] Address [address] [place] [address] Care Team Providers Care Wood Borer Name Role Phone Nadege Zuniga Primary Care Pr ovider Source Comments [facility],non-owned Affiliates and Associated Physician Practices is amultiple site organization consisting of ambulatory clinics and hospital sitesin [place], [place], [place] and [place]. This disclosure is being madepursuant to the Care Everywhere program and may not contain all information available regarding this patient. Last updated 18.[facility] Allergies No known active allergies Medications * Be aware that medications may not be up to date on this document. Alwaysverify current medications with the patient. Medication Sig Dispensed Refills Start Date End Date Status OtherIndications :Other androgenic alopecia Minoxidil 1.25 mg daily - skin medicinals ships this 30 tablet 11 06/08/2022 Active finasteride (Propecia) 1 MG tabletIndication s:Hair loss disorder Take 1 (one) tablet by mouth once daily 90 tablet 3 12/06/2024 Active finasteride (Propecia) 1 MG tabletIndication s:Hair loss disorder TAKE 1 TABLET BY MOUTH EVERY DAY 30 tablet 5 04/28/2023 12/06/2024 Discontinued (Reorder) Active Problems Problem Noted Date Diagnosed Date Loss of hair 06/08/2022 Tobacco user 06/08/2022 Vitamin D deficiency 06/08/2022 Lower urinary tract symptoms 04/09/2022 Mass of pharynx 11/08/2020 Throat tightness 11/08/2020 Torticollis 11/27/2019 Chronic infection of sinus 07/30/2016 Deviated nasal septum 07/30/2016 Chest pain 03/25/2016 Atopic rhinitis 03/14/2014 Overview (06/08/2022): Allergic rhinitis Onychomycosis 11/17/2011 Resolved Problems Problem Noted Date Diagnosed Date Resolved Date Acute urinary tract infection 04/09/2022 06/22/2022 Impacted cerumen 07/30/2016 06/22/2022 Encounters Date Type Department Care Team Description 12/06/2024 1:10 PM CDT Office Visit [facility] - Dermatology [address] [facility] [place] [address] Akiko De Oliveira PA Neoplasm of uncertain behavior of skin (Primary Dx); Hair loss disorder 12/01/2024 Travel from Last 3 Months Family History Medical History Relation Name Comments None Known Brother None Known Father None Known Maternal Aunt None Known Maternal Grandfather None Known Maternal Grandmother None Known Maternal Uncle None Known Mother None Known Paternal Aunt None Known Paternal Grandfather None Known Paternal Grandmother None Known Paternal Uncle Eczema Sister Marleny Asthma Neg Hx CVA Neg Hx Cancer - Breast Neg Hx Cancer - Other Neg Hx Cancer - Skin, Melanoma Neg Hx Cancer - Skin, Non Melanoma Neg Hx Hemophilia Neg Hx Psoriasis Neg Hx Relation Name Status Comments Brother Father Maternal Aunt Maternal Grandfather Maternal Grandmother Maternal Uncle Mother Paternal Aunt Paternal Grandfather Paternal Grandmother Paternal Uncle Sister Marleny Social History Tobacco Use Types Packs/Day Years Used Date Smoking Tobacco: Every Day Cigarettes Smokeless Tobacco: Never Sex and Gender Information Value Date Recorded Sex Assigned at Not on file Gender Identity Not on file Sexual Orientation Not on file Plan of Treatment Health Maintenance Due Date Last Done Comments COLOGUARD (AGES 45-75) - COLON CA SCREENING 1965 COLON MONITORING 1965 COLONOSCOPY - COLON CA SCREENING 1965 CT COLONOGRAPHY - COLON CA SCREENING 1965 Colorectal Cancer Screening 1965 FIT - COLON CA SCREENING 1965 FLEX SIG - COLON CA SCREENING 1965 LIPID TESTING 1965 PAP SMEAR 1965 HIV SCREENING 1980 HEPATITIS C SCREENING 07/04/1983 DTAP/TDAP/TD VACCINES (1 - Tdap) 1984 HEPATITIS B VACCINE (1 of 3 - 19+ 3-dose series) 1984 PNEUMOCOCCAL VACCINE 50+ (1 of 2 - PCV) 1984 ZOSTER VACCINE (1 of 2) 2015 COVID-19 VACCINE (2 - season) 2024 09/16/2021 INFLUENZA VACCINE (#1) 2024 DEPRESSION SCREENING 09/27/2024 MAMMOGRAM 05/03/2026 05/03/2024, 0803/2024, 12/28/2022, Additional history exists HIB VACCINE Aged Out No longer eligi ble based on patient's age to complete this topic HPV VACCINE Aged Out No longer eligi ble based on patient's age to complete this topic MENINGOCOCCAL (Group B) VACCINE SHARED DECISION-MAKING Aged Out No longer eligible based on patient's age to complete this topic MENINGOCOCCAL GROUPS A/C/Y/W VACCINE Aged Out No longer eligible based on patient's age to complete this topic Procedures Procedure Name Priority Date/Time Associated Diagnosis Comments MT TANGNTL BX SKIN SINGLE LES Routine 12/06/2024 1:44 PM CDT Neoplasm of uncertain behavior of skin DERMATOPATHOLOGY Routine 12/06/2024 1:39 PM CDT Neoplasm of uncertain behavior of skin from Last 3 Months Results * MT TANGNTL BX SKIN SINGLE LES (12/06/2024 1:44 PM CDT) Narrative Akiko De Oliveira PA - 12/06/2024 1:44 PM CDT Akiko De Oliveira PA 12/06/2024 1:45 PM Derm - Shave Biopsy Date/Time: 12/06/2024 1:44 PM Performed by: Akiko De Oliveira PA Authorized by: Akiko De Oliveira PA Consent given by: patient Consent type: verbal Risks discussed with patient: bleeding, need for further testing/treatment, infection, scar formation, skin color change and non-diagnostic biopsy. Procedure details: Skin prep: isopropyl alcohol Anesthesia: lidocaine 2% with epi Body area 1: Body area: head/neck Head/neck location: forehead Lesions in this body area: 1 Total number of lesions: 1 Instrument(s) used: flexible razor blade Wound dressing: bandage and petrolatum EBL: less than 5 mL Complications: none Wound care discussed with patient? yes Specimen(s) sent to pathology Patient preferred contact method(s): phone and MyChart [facility] PROCEDURE/MINOR SURG ICAL ORDERABLES * DERMATOPATHOLOGY (Specimen Count = 1) (12/06/2024 1:39 PM CDT) Case Report Dermatopathology Report Case: [id number] Authorizing Provider: Akiko De Oliveira PA Collected: 12/06/2024 01:39 PM Ordering Location: [facility] - Received: 12/06/2024 01:39 PM Dermatology Pathologist: Brenda Frausto MD Specimen: Skin, right fh 4:23 PM CDT DERMATOPATHOLOGY LABORATORY Final Diagnosis Specimen A. SKIN, right fh: BENIGN VERRUCOUS KERATOSIS, INFLAMED (L82.1) 4:23 PM CDT DERMATOPATHOLOGY LABORATORY Clinical History ISK vs VV 4:23 PM CDT DERMATOPATHOLOGY LABORATORY Gross Description Specimen A: Received is one formalin filled container labeled with the patient's name and designated right fh. The specimen consists of a shave biopsy measuring 8x7x2 mm. Jar 0. 4:23 PM CDT DERMATOPATHOLOGY LABORATORY Microscopic Description Specimen A. SKIN, right fh: Sections show hyperkeratosis, papillomatosis, hypergranulosis, and acanthosis. Inflammatory cells are present within the dermis. These histological findings can be seen in a verruca vulgaris or a seborrheic keratosis. 4:23 PM CDT DERMATOPATHOLOGY LABORATORY Disclaimer An external and internal positive and negative controls are appropriate for the histochemical, immunohistochemical and immunofluorescence stain(s) in this case (if any), except where stated explicitly. The performance characteristics of the stain(s) cited in this report were developed and its performance characteristic determined by the Dermatopathology Laboratory at [facility], directed by Dr. Ginger Maldonado. These tests need not be, and therefore are not, approved by the [place] Food and Drug Administration. The tests are used for clinical purposes. Billing Codes Specimen Charges Stain Charges 41512 1 5 4:23 PM CDT DERMATOPATHOLOGY LABORATORY Embedded Images 5 4:23 PM CDT DERMATOPATHOLOGY LABORATORY Pathology/Cytolo gy TISSUE SPECIMEN FROM SKIN / Unknown Collection / Unknown 12/06/2024 1:39 PM CDT 12/06/2024 1:39 PM CDT [facility] LAB - PATHOLOGY/CYTO LOGY ORDERABLES DERMATOPATHOLOGY LABORATORY [facility] - Department of Dermatology [address] [phone] from Last 3 Months Care Teams Wood Borer Relationship Specialty Start Date End Date Nadege Zuniga PA [address] [place] [address] PCP - General 02/13/21
--- OUTSIDE RECORDS SUMMARY | 2024-12-27 00:11 | XMS_ITS | Clinical Summary ---
Author Organization [facility] Address [address] [place] [address] Phone Care Team Providers Care Full Stack Web Developer Name Role Phone Provider, Unknown Primary Care Provider Unavaila ble Allergies No known active allergies Medications No known medications Active Problems No known active problems Social History Tobacco Use Types Packs/Day Years Used Date Smoking Tobacco: Every Day Smokeless Tobacco: Never Alcohol Use Standard Drinks/Week Comments Not Currently 0 (1 standard drink = 0.6 oz pur e alcohol) Comments Unknown Sex and Gender Information Value Date Recorded Sex Assigned at Not on file Legal Sex Female 4:16 PM CONSERVATION WORKER Gender Identity Not on file Sexual Orientation Not on file Last Filed Vital Signs Vital Sign Reading Time Taken Comments Blood Pressure 130/82 09/03/2020 5:14 PM CONSERVATION WORKER Pulse 90 09/03/2020 5:14 PM CONSERVATION WORKER Temperature 36.8 C (98.2 F) 09/03/2020 5:14 PM CONSERVATION WORKER Respiratory Rate 20 09/03/2020 5:14 PM CONSERVATION WORKER Oxygen Saturation 97% 09/03/2020 5:14 PM CONSERVATION WORKER Inhaled Oxygen Concentration - - Weight 65.8 kg (145 lb) 09/03/2020 5:14 PM CONSERVATION WORKER Height 160 cm (5' 3 ) 09/03/2020 5:14 PM CONSERVATION WORKER Body Mass Index 25.69 09/03/2020 5:14 PM CONSERVATION WORKER Plan of Treatment Health Maintenance Due Date Last Done Comments Hepatitis C Virus (HCV) Screening 1965 TdaP Immunization 1965 Hepatitis B Immunization (1 of 3 - 19+ 3-dose series) 1984 Colonoscopy 2010 Colorectal Cancer Screening 2010 Cologuard 2015 Immunochemical Fecal Occult Blood 2015 Pneumococcal Immunization (5 0+ years) (1 of 1 - PCV) 2015 Zoster Immunization (1 of 2) 2015 Influenza Immunization (#1) 2024 SARS-COV-2 Immunization ( season) 2024 09/16/2021, 01/03/2021, 12/12/2020 Respiratory Syncytial Virus (RSV) Immunization (Adult) (1 - 1-dose 75+ series) 2040 Meningococcal Immunization (ACWY) Aged Out No longer eligible b ased on patient's age to complete this topic Rotavirus Immunization Aged Out No lo nger eligible based on patient's age to complete this topic Insurance [facility] Care Teams Full Stack Web Developer Relationship Specialty Start Date End Date Provider, Unknown UNKNOWN PCP - General 09/03/20
--- OUTSIDE RECORDS SUMMARY | 2024-12-27 00:11 | XMS_ITS | Data Portability ---
Author Organization [place] - [facility] [employer], Main Office Address [address] [place] [address] Assessment No assessment recorded. Plan of Treatment Reminders Order Date Submit Date Provider Last Modified By Organization Details Last Modified Time Details Appointments None recorded. Lab vitamin B12 + folate, serum or blood 2022 023 [facility], [address], [place], [address], 3 05:20:29 iron + total iron-sage ng capacity (TIBC), serum 2022 023 [facility], [address], [place], [address], 3 05:20:27 ferritin, serum or plasma 2022 023 [facility], [address], [place], [address], 3 05:20:28 lipid panel, serum 2022 023 [employer] [facility], [address], [place], [address], 3 05:20:22 CMP, serum or plasma 2022 023 [employer] [facility], [address], [place], [address], 3 05:20:23 CBC w/ auto diff 2022 023 [employer] [facility], [address], [place], [address], 3 05:20:25 TSH + free T4, serum 2022 023 [employer] [facility], [address], [place], [address], 3 05:20:21 HbA1c (hemoglobi n A1c), blood 2022 023 [employer] [facility], [address], [place], [address], 3 05:20:24 Referral None recorded. Procedures None recorded. Surgeries None recorded. Imaging LDCT, chest, for lung cancer screening - Per Chloe this is not in scope. On Availity site no action required 2022 023 [facility] (Imaging), [address] [place] [address] [place] [address], [phone], 3 05:01:52 CT, abdomen, w/wo contrast - Approved [id number] 01/25/2023 - 3 2022 023 [facility] (Imaging), [address] [place] [address] [place] [address], [phone], 3 05:01:52 Medication Orders None recorded. Patient TargetsNo targets recorded. Patient InstructionsNo instructions recorded. Reason for Referral None Reported. Results Created Date Observation Date Name Description Value Unit Range Abnormal Flag Note LastModifiedBy Organization Detail LastModifiedTime 04/09/20 22 04/09/2022 urina lysis , dipst ick Leukocytes (reference range: negative petrona/ l) Small Not Available [facility] [place] [address], [place], [address], 04/09/2022 13:11:58 07/14/20 22 04/09/2022 urina lysis , dipst ick Nitrite (reference rage: negative mg/dl) negati ve Not Available [facility] [place] [address], [place], [address], 04/09/2022 13:11:58 04/09/20 22 04/09/2022 urina lysis , dipst ick Urobilinogen (reference range: 0.2-1 mg/dl) 0.2 Not Available [facility] [place] [address], [place], [address], 04/09/2022 13:11:58 04/09/20 22 04/09/2022 urina lysis , dipst ick Protein (reference range: negative mg/dl) Negati ve Not Available [facility] [place] [address], [place], [address], 04/09/2022 13:11:58 04/09/20 22 04/09/2022 urina lysis , dipst ick pH (reference range: 5-7) 6.0 Not Available [facility] [place] [address], [place], [address], 04/09/2022 13:11:58 04/09/20 22 04/09/2022 urina lysis , dipst ick Blood (reference range: negative Dalton/ l) Hemoly zed: Trace Not Available [facility] [place] [address], [place], [address], 04/09/2022 13:11:58 04/09/20 22 04/09/2022 urina lysis , dipst ick Specific [place] (reference range: 1.005-1.030) 1.015 Not Available [facility] [place] [address], [place], [address], 04/09/2022 13:11:58 04/09/20 22 04/09/2022 urina lysis , dipst ick Ketone (reference range: negative mg/dl) Negati ve Not Available [facility] [place] [address], [place], [address], 04/09/2022 13:11:58 04/09/20 22 04/09/2022 urina lysis , dipst ick Bilirubin (reference range: negative mg/dl) Negati ve Not Available [facility] [place] [address], [place], [address], 04/09/2022 13:11:58 04/09/20 22 04/09/2022 urina lysis , dipst ick Glucose (reference range: negative mg/dl) Negati ve Not Available [facility] [place] [address], [place], [address], 04/09/2022 13:11:58 04/09/20 22 04/09/2022 urina lysis , dipst ick Appearance Clear Not Available [facility] [place] [address], [place], [address], 04/09/2022 13:11:58 04/09/20 22 04/09/2022 urina lysis , dipst ick Color Yellow Not Available [facility] [place] [address], [place], [address], 04/09/2022 13:11:58 04/20/20 22 04/21/2022 CULTU RE, URINE , ROUTI NE culture, urine, routine CULTU RE, URINE , ROUTI NE Micro Numbe r: [id number] Test Statu s: Final Speci men Sourc e: Urine , clean catch Speci men Quali ty: Adequ ate Resul t: Mixed genit al joseph isola mir. These super ficia l bacte marimar are not indic ative of a urina ry tract infec tion. No furth er organ ism ident ifica tion is warra nted on this speci men. If clini nathan indic ated, recol lect clean -catc h, mid-s tream urine and trans yudelka immed iatel y to Urine Cultu re Trans port Tube. Not Available [address], [address], 04/21/2022 16:39:55 04/20/20 22 04/21/2022 URINA LYSIS , COMPL ETE color yellow yellow normal Not Available [address], [address], 04/21/2022 16:39:54 04/20/20 22 04/21/2022 URINA LYSIS , COMPL ETE appearance clear clear normal Not Available [address], [address], 04/21/2022 16:39:54 04/20/20 22 04/21/2022 URINA LYSIS , COMPL ETE specific gravity 1.016 1.001- 1.035 normal Not Available [address], [address], 04/21/2022 16:39:54 04/20/20 22 04/21/2022 URINA LYSIS , COMPL ETE pH 7.0 5.0-8. 0 normal Not Available [address], [address], 04/21/2022 16:39:54 04/20/20 22 04/21/2022 URINA LYSIS , COMPL ETE glucose negati ve negati ve normal Not Available [address], [place], [address], 04/21/2022 16:39:54 04/20/20 22 04/21/2022 URINA LYSIS , COMPL ETE bilirubin negati ve negati ve normal Not Available [address] [address] [place], [address], 04/21/2022 16:39:54 04/20/20 22 04/21/2022 URINA LYSIS , COMPL ETE ketones negati ve negati ve normal Not Available [address] [address] [place], [address], 04/21/2022 16:39:54 04/20/20 22 04/21/2022 URINA LYSIS , COMPL ETE occult blood negati ve negati ve normal Not Available [address], [address], 04/21/2022 16:39:54 04/20/20 22 04/21/2022 URINA LYSIS , COMPL ETE protein negati ve negati ve normal Not Available [address], [address], 04/21/2022 16:39:54 04/20/20 22 04/21/2022 URINA LYSIS , COMPL ETE nitrite negati ve negati ve normal Not Available [address], [address], 04/21/2022 16:39:54 04/20/20 22 04/21/2022 URINA LYSIS , COMPL ETE leukocyte esterase negati ve negati ve normal Not Available [address], [address], 04/21/2022 16:39:54 04/20/20 22 04/21/2022 URINA LYSIS , COMPL ETE WBC none seen /hpf < or = 5 normal Not Available [address], [address], 04/21/2022 16:39:54 04/20/20 22 04/21/2022 URINA LYSIS , COMPL ETE RBC 0-2 /hpf < or = 2 normal Not Available [address], [address], 04/21/2022 16:39:54 04/20/20 22 04/21/2022 URINA LYSIS , COMPL ETE squamous epithelial cells none seen /hpf < or = 5 normal Not Available [address], [address], 04/21/2022 16:39:54 04/20/20 22 04/21/2022 URINA LYSIS , COMPL ETE bacteria none seen /hpf none seen normal Not Available [address], [address], 04/21/2022 16:39:54 04/20/20 22 04/21/2022 URINA LYSIS , COMPL ETE hyaline cast none seen /lpf none seen normal Not Available [address], [address], 04/21/2022 16:39:54 04/20/20 22 04/21/2022 CBC (INCL UDES DIFF/ PLT) white blood cell count 9.1 thous and/u L 3.8-10 .8 normal Not Available [address], [address], 04/21/2022 16:39:53 04/20/20 22 04/21/2022 CBC (INCL UDES DIFF/ PLT) red blood cell count 5.18 ezekiel on/uL 3.80-5 .10 high Not Available [address], [address], 04/21/2022 16:39:53 04/20/20 22 04/21/2022 CBC (INCL UDES DIFF/ PLT) hemoglobin 15.6 g/dL 11.7-1 5.5 high Not Available [address], [address], 04/21/2022 16:39:53 04/20/20 22 04/21/2022 CBC (INCL UDES DIFF/ PLT) hematocrit 47.8 % 35.0-4 5.0 high Not Available [address], [address], 04/21/2022 16:39:53 04/20/20 22 04/21/2022 CBC (INCL UDES DIFF/ PLT) MCV 92.3 fL 80.0-1 00.0 normal Not Available [address], [address], 04/21/2022 16:39:53 04/20/20 22 04/21/2022 CBC (INCL UDES DIFF/ PLT) MCH 30.1 pg 27.0-3 3.0 normal Not Available [address], [address], 04/21/2022 16:39:53 04/20/20 22 04/21/2022 CBC (INCL UDES DIFF/ PLT) MCHC 32.6 g/dL 32.0-3 6.0 normal Not Available [address], [address], 04/21/2022 16:39:53 04/20/20 22 04/21/2022 CBC (INCL UDES DIFF/ PLT) RDW 11.9 % 11.0-1 5.0 normal Not Available [address], [address], 04/21/2022 16:39:53 04/20/20 22 04/21/2022 CBC (INCL UDES DIFF/ PLT) platelet count 261 thous and/u L 140-40 0 normal Not Available [address], [address], 04/21/2022 16:39:53 04/20/20 22 04/21/2022 CBC (INCL UDES DIFF/ PLT) MPV 10.8 fL 7.5-12 .5 normal Not Available [address], [address], 04/21/2022 16:39:53 04/20/20 22 04/21/2022 CBC (INCL UDES DIFF/ PLT) absolute neutrophils 6061 cells /uL 1500-7 800 normal Not Available [address], [address], 04/21/2022 16:39:53 04/20/20 22 04/21/2022 CBC (INCL UDES DIFF/ PLT) absolute lymphocytes 2093 cells /uL 850-39 00 normal Not Available [address], [address], 04/21/2022 16:39:53 04/20/20 22 04/21/2022 CBC (INCL UDES DIFF/ PLT) absolute monocytes 810 cells /uL 200-95 0 normal Not Available [address], [address], 04/21/2022 16:39:53 04/20/20 22 04/21/2022 CBC (INCL UDES DIFF/ PLT) absolute eosinophils 91 cells /uL 15-500 normal Not Available [address], [address], 04/21/2022 16:39:53 04/20/20 22 04/21/2022 CBC (INCL UDES DIFF/ PLT) absolute basophils 46 cells /uL 0-200 normal Not Available [address], [address], 04/21/2022 16:39:53 04/20/20 22 04/21/2022 CBC (INCL UDES DIFF/ PLT) neutrophils 66.6 % normal Not Available [address], [place], [address], 04/21/2022 16:39:53 04/20/20 22 04/21/2022 CBC (INCL UDES DIFF/ PLT) lymphocytes 23.0 % normal Not Available [facility] [address], [address], 04/21/2022 16:39:53 04/20/20 22 04/21/2022 CBC (INCL UDES DIFF/ PLT) monocytes 8.9 % normal Not Available [facility] [address] [address] [place], [address], 04/21/2022 16:39:53 04/20/20 22 04/21/2022 CBC (INCL UDES DIFF/ PLT) eosinophils 1.0 % normal Not Available [facility] [address], [address], 04/21/2022 16:39:53 04/20/20 22 04/21/2022 CBC (INCL UDES DIFF/ PLT) basophils 0.5 % normal Not Available [facility] [address], [address], 04/21/2022 16:39:53 04/20/20 22 04/21/2022 HEMOG LOBIN A1C hemoglobin A1C 5.2 %_of_ total _HGB <5.7 normal For the purpo se of tarun randle for the prese nce of diabe estuardo: <5.7% Consi stent with the absen ce of diabe estuardo 5.7-6 .4% Consi stent with incre ased risk for diabe estuardo (pred iabet es) > or =6.5% Consi stent with diabe estuardo This assay resul t is consi stent with a decre ased risk of diabe estuardo. Curre ntly, no conse nsus exist corine patrick use of hemog lobin A1c for diagn osis of diabe estuardo in child yesica. Accor ding to Ameri can Diabe estuardo Assoc iatio n (ADA) guide lines , hemog lobin A1c <7.0% repre sents optim al contr ol in non-p regna nt diabe tic patie nts. Diffe rent velma cs may apply to speci fic patie nt popul ation s. Stand ards of Medic al Care in Diabe estuardo(A DA). Not Available [address] [address] [place], [address], 04/21/2022 16:39:53 04/20/20 22 04/21/2022 COMPR EHENS CEE METAB OLIC PANEL glucose 70 mg/dL 65-99 normal Fasti ng refer ence inter kayleigh Not Available [facility] [address] [address] [place], [address], 04/21/2022 16:39:52 04/20/20 22 04/21/2022 COMPR EHENS CEE METAB OLIC PANEL urea nitrogen (BUN) 13 mg/dL 7-25 normal Not Available [address] [address] [place], [address], 04/21/2022 16:39:52 04/20/20 22 04/21/2022 COMPR EHENS CEE METAB OLIC PANEL creatinine 0.74 mg/dL 0.50-1 .03 normal Not Available [address] [address] [place], [address], 04/21/2022 16:39:52 04/20/20 22 04/21/2022 COMPR EHENS CEE METAB OLIC PANEL eGFR 95 mL/mi n/1.7 3m2 > or = 60 normal The eGFR is based on the CKD-E PI 2020 equat ion. To calcu late the new eGFR from a previ ous Creat inine or Cysta nany C resul t, go to https ://yris barillas/lisa pool/ kdoqi /gfr% 5Fcal culat or Not Available [facility] [address] [address] [place], [address], 04/21/2022 16:39:52 04/20/20 22 04/21/2022 COMPR EHENS CEE METAB OLIC PANEL BUN/creatini ne ratio not applic able (calc ) 6-22 Not Available [address], [address], 04/21/2022 16:39:52 04/20/20 22 04/21/2022 COMPR EHENS CEE METAB OLIC PANEL sodium 144 mmol/ L 135-14 6 normal Not Available [address], [address], 04/21/2022 16:39:52 04/20/20 22 04/21/2022 COMPR EHENS CEE METAB OLIC PANEL potassium 4.2 mmol/ L 3.5-5. 3 normal Not Available [address], [address], 04/21/2022 16:39:52 04/20/20 22 04/21/2022 COMPR EHENS CEE METAB OLIC PANEL chloride 107 mmol/ L 98-110 normal Not Available [address], [address], 04/21/2022 16:39:52 04/20/20 22 04/21/2022 COMPR EHENS CEE METAB OLIC PANEL carbon dioxide 28 mmol/ L 20-32 normal Not Available [address], [address], 04/21/2022 16:39:52 04/20/20 22 04/21/2022 COMPR EHENS CEE METAB OLIC PANEL calcium 9.9 mg/dL 8.6-10 .4 normal Not Available [address], [address], 04/21/2022 16:39:52 04/20/20 22 04/21/2022 COMPR EHENS CEE METAB OLIC PANEL protein, total 6.7 g/dL 6.1-8. 1 normal Not Available [address] [place], [address], 04/21/2022 16:39:52 04/20/20 22 04/21/2022 COMPR EHENS CEE METAB OLIC PANEL albumin 4.4 g/dL 3.6-5. 1 normal Not Available [address], [address], 04/21/2022 16:39:52 04/20/20 22 04/21/2022 COMPR EHENS CEE METAB OLIC PANEL globulin 2.3 g/dL_ (calc ) 1.9-3. 7 normal Not Available [address], [address], 04/21/2022 16:39:52 04/20/20 22 04/21/2022 COMPR EHENS CEE METAB OLIC PANEL albumin/glob ulin ratio 1.9 (calc ) 1.0-2. 5 normal Not Available [address], [address], 04/21/2022 16:39:52 04/20/20 22 04/21/2022 COMPR EHENS CEE METAB OLIC PANEL bilirubin, total 0.6 mg/dL 0.2-1. 2 normal Not Available [address], [address], 04/21/2022 16:39:52 04/20/20 22 04/21/2022 COMPR EHENS CEE METAB OLIC PANEL alkaline phosphatase 112 U/L 37-153 normal Not Available [facility] [place] [address] [address] [place], [address], 04/21/2022 16:39:52 04/20/20 22 04/21/2022 COMPR EHENS CEE METAB OLIC PANEL AST 16 U/L 10-35 normal Not Available [address], [address], 04/21/2022 16:39:52 04/20/20 22 04/21/2022 COMPR EHENS CEE METAB OLIC PANEL ALT 13 U/L 6-29 normal Not Available [address] [address] [place], [address], 04/21/2022 16:39:52 04/20/20 22 04/21/2022 LIPID PANEL WITH RATIO S cholesterol, total 164 mg/dL <200 normal Not Available [address], [address], 04/21/2022 16:39:51 04/20/20 22 04/21/2022 LIPID PANEL WITH RATIO S HDL cholesterol 50 mg/dL > or = 50 normal Not Available [address], [address], 04/21/2022 16:39:51 04/20/20 22 04/21/2022 LIPID PANEL WITH RATIO S triglyceride s 119 mg/dL <150 normal Not Available [address], [address], 04/21/2022 16:39:51 04/20/20 22 04/21/2022 LIPID PANEL WITH RATIO S LDL-choleste rol 92 mg/dL _(tammy c) normal Refer ence range : <100 Sandeep able range <100 mg/dL for prima ry preve ntion ; <70 mg/dL for patie nts with CHD or diabe tic patie nts with > or = 2 CHD risk facto rs. LDL-C is now calcu lated using the Ina n-Hop kins calcu adeel n, which is a valid ated novel metho d randall womack acy than the Fried pita equat ion in the estim ation of LDL-C . Ina guerra SS et al. DEYANIRA. 2013; 310(1 9): 2061- 2068 (http ://ed ucati on.Qu estDi One[employer]os [employer]. com/f aq/FA Q164) Not Available [address] [address] [place], [address], 04/21/2022 16:39:51 04/20/20 22 04/21/2022 LIPID PANEL WITH RATIO S chol/HDLC ratio 3.3 (calc ) <5.0 normal Not Available [address], [address], 04/21/2022 16:39:51 04/20/20 22 04/21/2022 LIPID PANEL WITH RATIO S LDL/HDL ratio 1.8 (calc ) Below avera ge Risk: <2.34 [place] ge Risk: 2.35- 4.12 Moder ate Risk: 4.13- 5.56 High Risk: >5.57 Not Available [address], [address], 04/21/2022 16:39:51 04/20/20 22 04/21/2022 LIPID PANEL WITH RATIO S non HDL cholesterol 114 mg/dL _(tammy c) <130 normal For patie nts with diabe estuardo plus 1 major ASCVD risk facto r, treat ing to a non-H DL-C goal of <100 mg/dL (LDL- C of <70 mg/dL ) is conssandra mcneillo n. Not Available [address], [address], 04/21/2022 16:39:51 04/20/20 22 04/21/2022 TSH+F REE T4 TSH 2.18 mIU/L 0.40-4 .50 normal Not Available [address], [address], 04/21/2022 16:39:50 04/20/20 22 04/21/2022 TSH+F REE T4 T4, free 1.3 NG/dL 0.8-1. 8 normal Not Available [address], [address], 04/21/2022 16:39:50 07/27/20 23 07/28/2023 TSH+F REE T4 TSH 1.87 mIU/L 0.40-4 .50 normal Not Available [address], [address], 07/28/2023 05:20:21 07/27/20 23 07/28/2023 TSH+F REE T4 T4, free 1.0 NG/dL 0.8-1. 8 normal Not Available [address], [address], 07/28/2023 05:20:21 07/27/20 23 07/28/2023 LIPID PANEL WITH RATIO S cholesterol, total 197 mg/dL <200 normal Not Available [address], [address], 07/28/2023 05:20:22 07/27/20 23 07/28/2023 LIPID PANEL WITH RATIO S HDL cholesterol 76 mg/dL > or = 50 normal Not Available [address], [address], 07/28/2023 05:20:22 07/27/20 23 07/28/2023 LIPID PANEL WITH RATIO S triglyceride s 124 mg/dL <150 normal Not Available [address], [address], 07/28/2023 05:20:22 07/27/20 23 07/28/2023 LIPID PANEL WITH RATIO S LDL-choleste rol 98 mg/dL _(tammy c) normal Refer ence range : <100 Sandeep able range <100 mg/dL for prima ry preve ntion ; <70 mg/dL for patie nts with CHD or diabe tic patie nts with > or = 2 CHD risk facto rs. LDL-C is now calcu lated using the Ina n-Hop kins calcu adeel n, which is a valid ated novel metho d provsandra patrick vivi r accur acy than the Fried pita equat ion in the estim ation of LDL-C . Ina guerra SS et al. DEYANIRA. 2013; 310(1 9): 2061- 2068 (http ://ed ucati on.Gavino dodge Naytev. com/f aq/FA Q164) Not Available [address], [address], 07/28/2023 05:20:22 07/27/20 23 07/28/2023 LIPID PANEL WITH RATIO S chol/HDLC ratio 2.6 (calc ) <5.0 normal Not Available [address], [address], 07/28/2023 05:20:22 07/27/20 23 07/28/2023 LIPID PANEL WITH RATIO S LDL/HDL ratio 1.3 (calc ) Below avera ge Risk: <2.34 [place] ge Risk: 2.35- 4.12 Moder ate Risk: 4.13- 5.56 High Risk: >5.57 Not Available [address], [address], 07/28/2023 05:20:22 07/27/20 23 07/28/2023 LIPID PANEL WITH RATIO S non HDL cholesterol 121 mg/dL _(tammy c) <130 normal For patie nts with diabe estuardo plus 1 major ASCVD risk facto r, treat ing to a non-H DL-C goal of <100 mg/dL (LDL- C of <70 mg/dL ) is consi marybeth a braden nevarez c optio n. Not Available [address], [address], 07/28/2023 05:20:22 07/27/20 23 07/28/2023 COMPR EHENS CEE METAB OLIC PANEL glucose 98 mg/dL 65-99 normal Fasti ng refer ence inter kayleigh Not Available [address], [address], 07/28/2023 05:20:23 07/27/20 23 07/28/2023 COMPR EHENS CEE METAB OLIC PANEL urea nitrogen (BUN) 15 mg/dL 7-25 normal Not Available [address], [address], 07/28/2023 05:20:23 07/27/20 23 07/28/2023 COMPR EHENS CEE METAB OLIC PANEL creatinine 0.71 mg/dL 0.50-1 .03 normal Not Available [address], [address], 07/28/2023 05:20:23 07/27/20 23 07/28/2023 COMPR EHENS CEE METAB OLIC PANEL eGFR 98 mL/mi n/1.7 3m2 > or = 60 normal Not Available [address], [address], 07/28/2023 05:20:23 07/27/20 23 07/28/2023 COMPR EHENS CEE METAB OLIC PANEL BUN/creatini ne ratio SEE NOTE: (calc ) 6-22 Not Repor mir: BUN and Creat inine are withi n refer ence range . Not Available [address], [address], 07/28/2023 05:20:23 07/27/20 23 07/28/2023 COMPR EHENS CEE METAB OLIC PANEL sodium 141 mmol/ L 135-14 6 normal Not Available [address], [address], 07/28/2023 05:20:23 07/27/20 23 07/28/2023 COMPR EHENS CEE METAB OLIC PANEL potassium 4.2 mmol/ L 3.5-5. 3 normal Not Available [address], [address], 07/28/2023 05:20:23 07/27/20 23 07/28/2023 COMPR EHENS CEE METAB OLIC PANEL chloride 106 mmol/ L 98-110 normal Not Available [address], [place], [address], 07/28/2023 05:20:23 07/27/20 23 07/28/2023 COMPR EHENS CEE METAB OLIC PANEL carbon dioxide 28 mmol/ L 20-32 normal Not Available [facility] [address], [address], 07/28/2023 05:20:23 07/27/20 23 07/28/2023 COMPR EHENS CEE METAB OLIC PANEL calcium 9.7 mg/dL 8.6-10 .4 normal Not Available [address], [address], 07/28/2023 05:20:23 07/27/20 23 07/28/2023 COMPR EHENS CEE METAB OLIC PANEL protein, total 7.0 g/dL 6.1-8. 1 normal Not Available [address], [address], 07/28/2023 05:20:23 07/27/20 23 07/28/2023 COMPR EHENS CEE METAB OLIC PANEL albumin 4.6 g/dL 3.6-5. 1 normal Not Available [address], [address], 07/28/2023 05:20:23 07/27/20 23 07/28/2023 COMPR EHENS CEE METAB OLIC PANEL globulin 2.4 g/dL_ (calc ) 1.9-3. 7 normal Not Available [facility] [address], [address], 07/28/2023 05:20:23 07/27/20 23 07/28/2023 COMPR EHENS CEE METAB OLIC PANEL albumin/glob ulin ratio 1.9 (calc ) 1.0-2. 5 normal Not Available [facility] [address], [address], 07/28/2023 05:20:23 07/27/20 23 07/28/2023 COMPR EHENS CEE METAB OLIC PANEL bilirubin, total 0.6 mg/dL 0.2-1. 2 normal Not Available [address] [address] [place], [address], 07/28/2023 05:20:23 07/27/20 23 07/28/2023 COMPR EHENS CEE METAB OLIC PANEL alkaline phosphatase 120 U/L 37-153 normal Not Available [facility] [address] [address] [place], [address], 07/28/2023 05:20:23 07/27/20 23 07/28/2023 COMPR EHENS CEE METAB OLIC PANEL AST 18 U/L 10-35 normal Not Available [address] [address] [place], [address], 07/28/2023 05:20:23 07/27/20 23 07/28/2023 COMPR EHENS CEE METAB OLIC PANEL ALT 14 U/L 6-29 normal Not Available [address] [address] [place], [address], 07/28/2023 05:20:23 07/27/20 23 07/28/2023 HEMOG LOBIN A1C hemoglobin A1C 5.0 %_of_ total _HGB <5.7 normal For the purpo se of tarun randle for the prese nce of diabe estuardo: <5.7% Consi stent with the absen ce of diabe estuardo 5.7-6 .4% Consi stent with incre ased risk for diabe estuardo (pred iabet es) > or =6.5% Consi stent with diabe estuardo This assay resul t is consi stent with a decre ased risk of diabe estuardo. Curre ntly, no conse nsus exist s dragan patrick use of hemog lobin A1c for diagn osis of diabe estuardo in child yesica. Accor ding to [employer] Di[employer] estuardo [employer] n (ADA) guide lines , hemog lobin A1c <7.0% repre sents optim al contr ol in non-p regna nt diabe tic patie nts. Diffe yesicat velma cs may apply to speci fic patie nt julianul atshikha s. [facility] in Diabe estuardo(A DA). Not Available [facility] [address] [address] [place], [address], 07/28/2023 05:20:24 07/27/20 23 07/28/2023 CBC (INCL UDES DIFF/ PLT) white blood cell count 9.1 thous and/u L 3.8-10 .8 normal Not Available [facility] [address], [address], 07/28/2023 05:20:25 07/27/20 23 07/28/2023 CBC (INCL UDES DIFF/ PLT) red blood cell count 4.91 ezekiel on/uL 3.80-5 .10 normal Not Available [address], [address], 07/28/2023 05:20:25 07/27/20 23 07/28/2023 CBC (INCL UDES DIFF/ PLT) hemoglobin 15.7 g/dL 11.7-1 5.5 high Not Available [address], [address], 07/28/2023 05:20:25 07/27/20 23 07/28/2023 CBC (INCL UDES DIFF/ PLT) hematocrit 46.5 % 35.0-4 5.0 high Not Available [facility] [address], [address], 07/28/2023 05:20:25 07/27/20 23 07/28/2023 CBC (INCL UDES DIFF/ PLT) MCV 94.7 fL 80.0-1 00.0 normal Not Available [facility] [address], [address], 07/28/2023 05:20:25 07/27/20 23 07/28/2023 CBC (INCL UDES DIFF/ PLT) MCH 32.0 pg 27.0-3 3.0 normal Not Available [address], [address], 07/28/2023 05:20:25 07/27/20 23 07/28/2023 CBC (INCL UDES DIFF/ PLT) MCHC 33.8 g/dL 32.0-3 6.0 normal Not Available [address], [address], 07/28/2023 05:20:25 07/27/20 23 07/28/2023 CBC (INCL UDES DIFF/ PLT) RDW 11.9 % 11.0-1 5.0 normal Not Available [address], [address], 07/28/2023 05:20:25 07/27/20 23 07/28/2023 CBC (INCL UDES DIFF/ PLT) platelet count 284 thous and/u L 140-40 0 normal Not Available [address], [address], 07/28/2023 05:20:25 07/27/20 23 07/28/2023 CBC (INCL UDES DIFF/ PLT) MPV 10.5 fL 7.5-12 .5 normal Not Available [address], [address], 07/28/2023 05:20:25 07/27/20 23 07/28/2023 CBC (INCL UDES DIFF/ PLT) absolute neutrophils 5806 cells /uL 1500-7 800 normal Not Available [address], [address], 07/28/2023 05:20:25 07/27/20 23 07/28/2023 CBC (INCL UDES DIFF/ PLT) absolute lymphocytes 2330 cells /uL 850-39 00 normal Not Available [address], [address], 07/28/2023 05:20:25 07/27/20 23 07/28/2023 CBC (INCL UDES DIFF/ PLT) absolute monocytes 855 cells /uL 200-95 0 normal Not Available [address], [address], 07/28/2023 05:20:25 07/27/20 23 07/28/2023 CBC (INCL UDES DIFF/ PLT) absolute eosinophils 73 cells /uL 15-500 normal Not Available [address], [address], 07/28/2023 05:20:25 07/27/20 23 07/28/2023 CBC (INCL UDES DIFF/ PLT) absolute basophils 36 cells /uL 0-200 normal Not Available [address], [address], 07/28/2023 05:20:25 07/27/20 23 07/28/2023 CBC (INCL UDES DIFF/ PLT) neutrophils 63.8 % normal Not Available [address], [address], 07/28/2023 05:20:25 07/27/20 23 07/28/2023 CBC (INCL UDES DIFF/ PLT) lymphocytes 25.6 % normal Not Available [address], [address], 07/28/2023 05:20:25 07/27/20 23 07/28/2023 CBC (INCL UDES DIFF/ PLT) monocytes 9.4 % normal Not Available [address], [address], 07/28/2023 05:20:25 07/27/20 23 07/28/2023 CBC (INCL UDES DIFF/ PLT) eosinophils 0.8 % normal Not Available [facility] [id number], [place], [address], 07/28/2023 05:20:25 07/27/20 23 07/28/2023 CBC (INCL UDES DIFF/ PLT) basophils 0.4 % normal Not Available [address], [address], 07/28/2023 05:20:25 07/27/20 23 07/28/2023 IRON AND TOTAL IRON SAGE NG CAPAC ITY iron, total 149 mcg/d L 45-160 normal Not Available [address], [address], 07/28/2023 05:20:27 07/27/20 23 07/28/2023 IRON AND TOTAL IRON SAGE NG CAPAC ITY iron binding capacity 310 mcg/d L_(ca lc) 250-45 0 normal Not Available [address], [address], 07/28/2023 05:20:27 07/27/20 23 07/28/2023 IRON AND TOTAL IRON SAGE NG CAPAC ITY % saturation 48 %_(ca lc) 16-45 high Not Available [address], [address], 07/28/2023 05:20:27 07/27/20 23 07/28/2023 MADAN TIN ferritin 54 NG/mL 16-232 normal Not Available [address], [address], 07/28/2023 05:20:28 07/27/20 23 07/28/2023 VITAM IN B12/F OLATE , SERUM PANEL vitamin B12 373 pg/mL 200-11 00 normal Pleas e Note: Altho ugh the refer ence range for vitam in B12 is 200-1 100 pg/mL , it has been repor mir that betwe en 5 and 10% of patie nts with value s betwe en 200 and 400 pg/mL may exper ience neuro psych iatri c and hemat ologi c abnor malit ies due to occul t B12 defic iency ; less than 1% of patie nts with value s above 400 pg/mL will have sympt oms. Not Available [facility] [address] [place], [address], 07/28/2023 05:20:29 07/27/20 23 07/28/2023 VITAM IN B12/F OLATE , SERUM PANEL folate, serum 18.0 NG/mL normal Refer ence Range Low: <3.4 Borde rline : 3.4-5 .4 Alysha l: >5.4 Not Available [facility] [address], [place], [address], 07/28/2023 05:20:29 07/17/20 22 07/17/2022 CT, abdom en + pelvi s, w/ contr ast No observ ation record ed. [facility] [place] [address] [address], [place], [address], 01/25/2023 11:43:46 12/30/19 23 12/28/2022 MAMMO , scree razia, digit al, bilat eral No observ ation record ed. [address] Breast [facility] [address] [place], [address], 01/25/2023 11:43:52 Result Notes None recorded. Problems Name Problem SNOMED Code Status Onset Date Resolution Date Notes Provider Name and Address Organization Details Recorded Time Atypical chest pain 734176315 Active Not Available [facility] 3 18:03:06 Tobacco user 645343853 Active Not Available [facility] 3 18:03:06 Loss of hair 923920487 Active Not Available [facility] 3 18:03:06 Lower urinary tract symptoms 543224295 Active 2021 Not Available [facility] 3 18:03:06 Vitamin D deficiency 02918236 Active Not Available [facility] 3 18:03:06 Acute urinary tract infection 844216591 Active 2021 Not Available [facility] 18:03:06 Adrenal mass 071781537 Active 2022 FRANCI Hickman [address] [facility], [facility] [address], [place], [address] , [facility] 11:57:25 Problem Notes None recorded. Procedures Surgical History Date Name Laterality Status Provider Name and Address Organization Details Recorded Time 10/21/19 17 Date of Last Colonoscopy completed Not Available [facility] 11/25/2022 18:02:24 09/27/19 05 Hysterectomy, Partial completed Not Available [facility] 11/25/2022 18:02:24 09/27/18 67 tonsilectomy/ad enoids completed Not Available [facility] 11/25/2022 18:02:24 Imaging Results Imaging Date Name Status LastModified by Organiz ation Details LastModified Time 07/17/2022 CT, abdomen + pelvis, w/ contrast completed [address], [place], [address], 01/25/2023 11:43:46 12/28/2022 MAMMO, screening, digital, bilateral completed [address], [address], 01/25/2023 11:43:52 Procedure Notes None recorded. Medical Equipment None Reported. Allergies No known drug allergies Medications Name Sig Start Date Stop Date Status Note LastModified by Organization Details LastModified Time methocarbam ol 500 mg tablet active Not Available Not Available Not Available azithromyci n 250 mg tablet 03/16 completed Not Available Not Available Not Available Diflucan 150 mg tablet take one tab po on day 1 and day 3 01/22 completed Not Available Not Available Not Available penicillin V potassium 500 mg tablet TAKE 1 TABLET BY MOUTH FOUR TIMES A DAY UNTIL GONE 04/09 completed Not Available Not Available Not Available metronidazo le 500 mg tablet TAKE 1 TABLET BY MOUTH EVERY 8 HOURS FOR 10 DAYS 01/22 completed Not Available Not Available Not Available ciprofloxac in 500 mg tablet TAKE 1 TABLET BY MOUTH EVERY 12 HOURS FOR 10 DAYS 01/22 completed Not Available Not Available Not Available amoxicillin 875 mg tablet 07/03 completed Not Available Not Available Not Available ibuprofen 600 mg tablet active Not Available Not Available Not Available Vitamin D2 1,250 mcg (50,000 unit) capsule Take 1 capsule every week by oral route as directed. active Not Available Not Available No t Available Tussionex Pennkinetic ER 10 mg-8 mg/5 mL suspension, extended release Take 5 mL every day by oral route at bedtime. 11/05 completed Not Available Not Available Not Available cefdinir 300 mg capsule Take 1 capsule every 12 hours by oral route. active Not Available Not Available No t Available fluticasone propionate 50 mcg/actuati on nasal spray,suspe nsion inhale 2 sprays each nostril daily 07/03 completed Not Available Not Available Not Available finasteride 1 mg tablet TAKE 1 TABLET BY MOUTH EVERY DAY active Not Available Not Available No t Available amoxicillin 875 mg-potassiu m clavulanate 125 mg tablet TAKE 1 TABLET BY MOUTH TWICE A DAY FOR 7 DAYS 01/22 completed Not Available Not Available Not Available Bactrim DS 800 mg-160 mg tablet Take 1 tablet every 12 hours by oral route. 07/02 completed Not Available Not Available Not Available cyclobenzap rine 5 mg tablet active Not Available Not Available Not Available clobetasol 0.05 % lotion APPLY A THIN LAYER TO THE AFFECTED AREA(S) by topical route each evening. 02/26 completed Not Available Not Available Not Available Suprep Bowel Prep Kit 17.5 gram-3.13 gram-1.6 gram oral solution 02/26 completed Not Available Not Available Not Available Dymista 137 mcg-50 mcg/spray nasal spray active Not Available Not Available Not Available Xiidra 5 % eye drops in a dropperette 03/16 completed Not Available Not Available Not Available Yuvafem 10 mcg vaginal tablet INSERT 1 TABLET VAGINALLY 3 TIMES A WEEK 01/25 completed Not Available Not Available Not Available Vitals Date Recorded Body mass index (BMI) Body height Oxygen saturation Oxygen saturation in Arterial blood by Pulse oximetry Heart rate Respiratory rate Body temperature Body weight Systolic blood pressure Diastolic blood pressure Provider Name and Address Organization Details Last Updated DateTime 2 21.8 kg/m2 162.56 cm 98 % 98 % 68 /min 16 /min 98.5 [degF] 16636.2 3 g 112 mm[Hg] 70 mm[Hg] Not Available [facility] 3 18:02:33 Date Recorded Body height Body mass index (BMI) Body weight Body temperature Respiratory rate Oxygen saturation Oxygen saturation in Arterial blood by Pulse oximetry Heart rate Systolic blood pressure Diastolic blood pressure Provider Name and Address Organization Details Last Updated DateTime 3 162.56 cm 22.4 kg/m2 09975.8 g 97.2 [degF] 16 /min 96 % 96 % 68 /min 122 mm[Hg] 80 mm[Hg] ANA Beard [place] [facility] [employer] [facility] 3 11:39:52 Social History Question Answer Notes LastModified by Organizat ion Details LastModified Time Tobacco Smoking Status Current Every Day Smoker Not Available [facility] 11/25/2022 18:02:14 Do You Have An Advance Directive? No [id number] Information not available 11/25/2022 What Is Your Level Of Alcohol Consumption? None [id number] Information not available 11/25/2022 What Is Your Level Of Caffeine Consumption? Moderate [id number] Information not available 11/25/2022 In The 14 Days Before Symptom Onset, Have You Had Close Contact With A Laboratory-confirm ed COVID-19 While That Case Was Ill? No [id number] Information not available 11/25/2022 In The 14 Days Before Symptom Onset, Have You Had Close Contact With A Person Who Is Under Investigation For COVID-19 While That Person Was Ill? No [id number] Information not available 11/25/2022 Are You Currently Employed? Yes [email or web address] Information not available 01/22/2023 What Type Of Diet Are You Following? REGULAR [id number] Information not available 11/25/2022 What Is Your Occupation? [employer] Work[employer] [id number].[id number] Information not available 11/25/2022 Have There Been Any Changes To Your Family Or Social Situation? No [id number] Information not available 11/25/2022 Are There Any Guns Present In Your Home? No [id number] Information not available 11/25/2022 Do You Use Insect Repellent Routinely? No [id number] 4010 Information not available 11/25/2022 Do You Have A Medical Power Of [employer]? No [id number] Information not available 11/25/2022 What Is Your Relationship Status? [id number] Information not available 11/25/2022 Do You Use Your Seat Belt Or Car Seat Routinely? Yes [id number] 9623 Information not available 11/25/2022 Do You Have Smoke And Carbon Monoxide Detectors In Your Home? Yes [id number] Information not available 11/25/2022 At What Age Did You Start Smoking Tobacco? 16 [id number].[id number] 9315 Information not available 11/25/2022 How Much Tobacco Do You Smoke? 0.5 PPD [id number].[id number] 1090 Information not available 11/25/2022 Do You Use Any Illicit Or Recreational Drugs? No [id number] 9296 Information not available 11/25/2022 Do You Use Sunscreen Routinely? Yes [id number].[id number] 4589 Information not available 11/25/2022 Have You Recently Traveled Abroad? No [id number].[id number] 1165 Information not available 11/25/2022 Do You Have Any Dietary Restrictions? No MIGRATION.[id number] 5869 Information not available 11/25/2022 Do You Or Have You Ever Used Any Other Forms Of Tobacco Or Nicotine? No [id number].[id number] 7426 Information not available 11/25/2022 Sex: Unknown Functional Status Question Answer Note LastModified by Organizat ion Details LastModified Time What is your exercise level? Moderate [id number] Information not available 11/25/2022 Mental Status None recorded. Family History Relationship Description Onset Age of this Age Resolved Age Notes LastModified by Organization Details LastModified Time Mother Myocardial infarction [id number] Not available 11/25/2022 18:02:25 Father Cerebrovascu lar accident [id number] Not available 11/25/2022 18:02:25 Father Alcoholism [id number] Not available 11/25/2022 18:02:25 Unspecified Relation Hypertensive disorder [id number] Not available 11/25/2022 18:02:25 Medical History Condition Response SKIN PROBLEMS Y Gynecological History Statement/Question Response Date of Last Pap 11/26/2015 Date of Last Mammogram 08/09/2021 Date of Last Colonoscopy 10/21/2016 Sexually Active? Y Obstetrics History GPAL:G 0 P 0 0 0 0 Immunizations Vaccine Type Date Status Note Provider Nam e and Address Organization Details Recorded Time COVID-19, mRNA, LNP-S, PF, 30 mcg/0.3 mL dose 09/16/2021 completed Not Available [facility] 18:04:04 Past Encounters Encounter ID Performer Location Encounter Start Date Encounter Closed Date Diagnosis/Indication Diagnosis SNOMED-CT Code Diagnosis ICD10 Code Diagnosis Note [id number] [facility] [place] [address] [place] [id number] 04/09/2022 00:00:00 04/15/2022 12:14:41 [id number] FRANCI Hickman [facility] [place] [address] [place] [address] 01/25/2023 11:35:05 01/25/2023 12:04:46 Adrenal mass 569601356 R19.09 bilateral adrenal masses measuring up to 1.5cm noted on CT scan from GI that were likely adenomas and required 12 month f/u. We can order this now and screen more on 6 month interval. Tobacco user 245003161 Z 72.0 pt does qualify for LDCT lung cancer screening. current tobacco user Cholesterol screening 27 0841140 Z13.220 fasting lipids due in march Diabetes m ellitus screening 142100249 Z13.1 screening diabetes. Long-term drug therapy 472813721 Z79.899 routine CBC, CMP, TFTs due. Loss of hair 138973147 L 65.9 notable hair loss. screening iron studies and b12, folate Health Concerns Section Related Observation LastModified by Organization Detai ls LastModified Time None Recorded Concern Status LastModified by Organization Details LastModified Time None Recorded Advance Directives Directive N: Payers Encounter Date Sequence Insurance Name Policy Number Policy Meek Covered Member ID Meek Member ID Guarantor Name 01/25/2023 1 [place] [employer] ([place]) [address] Braed[address] Mckeon [id number] Prema Mckeon Notes Date Note Type Note Provider Name and Address Organization Details Recorded Time 04/09/2022 text/html Urinary FrequencyReported bypatient.Quality:does nt matter Severity:mild Duration:every 30 minutes Onset/Timing:actual date: (1 week ago) Alleviating Factors:hasnt tried anything really Associated Symptoms:no back pain; no chills; no constipation; no dribbling; no pain with urination; no blood in the urine; no hesitancy; normal libido; no nausea; no vomiting; no nocturia; no urine odor; no straining; no fever; no feelings of urgency;abdominal pain(lower);diarrhea(l oose stool);incomplete emptying of bladder;incontinence;u rge incontinence Not Available [facility] 04/15/2022 12:14:41 01/25/2023 text/html Generic HPI TemplateReported bypatient.Notes:Pt is here to f/u on a CT she had done in Jun from GI. Result is in her chart. Pt also c/o hair loss prominent. pt is tobacco user. FRANCI Hickman [address] [facility], [facility] [address], [place], [address], [facility] 02/23/2023 20:10:08 OBGyn Episode No OBEpisode recorded.
[2024-12-27 06:34] VITALS: BP 133/83; PULSE 92; RESP 16; TEMP 36.5; O2SAT 98; BMI 24.2
[2024-12-27] MEDS: LACTATED RINGERS 1,000 ML 150 ML IV CONT (06:52)
--- NOTE | 2024-12-27 07:05 | P.PNAN_ITS ---
Anes - Initial Pre Proc Eval Procedure: Operation Date: 12/27/24 08:00 Proposed Procedures p Esophagogastroduodenoscopy&Screen Colon - Tommy Jang MD Date/Time: 12/27/24 07:05 Surgeon: Tommy Jang MD Pre Op Diagnosis: screening malignant neoplasm colon Patient Data Age: 59 Gender: F Height: 1.6 m Weight: 62 kg Last Vital Signs Temp 36.5 C 12/27/24 06:34 Pulse 92 12/27/24 06:34 Resp 16 12/27/24 06:34 BP 133/83 12/27/24 06:34 Pulse Ox 98 12/27/24 06:34 O2 Del Method Room Air 12/27/24 06:34 Allergies Allergy/AdvReac Type Severity Reaction Status Date / Time No Known Allergies Allergy Verified 12/27/24 06:39 Home Medications ?Medication ?Instructions ?Recorded ?Confirmed ?Type finasteride 1 mg tablet 1 mg PO DAILY 07/16/22 12/27/24 History dicyclomine 10 mg capsule 10 mg PO QID PRN abdominal pain 10/31/24 12/20/24 Rx #360 caps Patient hx anesthesia problems: none Family hx anesthesia problems: none Results Review: All pre-operative results and documents have been reviewed as part of the pre- operative evaluation. [facility] Past Medical History Medical History (Updated 12/26/24 @ 13:21 by Bong Young DO) Anxiety IBS (irritable bowel syndrome) Constipation Family hx of colon cancer Right lower quadrant abdominal swelling, mass and lump RLQ abdominal pain Healthy adult Surgical History Surgical History History of hysterectomy Hx of tonsillectomy Family History Family History Father Hypertension Mother Patient's mother is in good health Sibling Patient's sister is in good health Social History Social History Smoking packs per day: 1 Smoking cigarettes per day: 20.0 Years smoked: 40 Smoking pack-years: 40.00 Smoking status: Former smoker Tobacco type: cigarettes Alcohol intake: current Drinks per week: 5 Alcohol use details: Wine Substance use: never Substance use type: does not use Living arrangements: with family Gender identity (if verbalized by the patient): Female Spiritual care concerns: No Anes - Eval Final PreProcedure Day of Procedure 12/27/24 07:05 Patient weight: normal Heart: regular rate and rhythm Lungs: clear to auscultation and normal air movement Airway: Mallampati scale class II Neurological: alert and oriented Last oral intake: >/= 8 hours ASA classification: II Emergent: no Anesthetic plan: proceed Anesthesia type and monitoring: general GIVS and standard monitoring Results Review: All pre-operative results and documents have been reviewed as part of the pre- operative evaluation. Informed Consent: The patient's anesthetic plan and its attendant risks and benefits were discussed with the patient/family/POA. Questions were solicited and answers provided to the satisfaction of the patient/family/POA.
--- NOTE | 2024-12-27 07:44 | PM.HPGS ---
History of Present Illness History of Present Illness Consent: Risks, benefits, and alternatives have been discussed and questions answered. Patient agrees to proceed with procedure. Chief complaint: screening malignant neoplasm colon Narrative: Prema Mckeon is a 59 year old female with ibs and constipation, also gas , last colonoscopy 2016, grandfather and aunt with colon cancer. Review of Systems Review of Systems: All systems reviewed & are unremarkable except as noted in HPI and below PMFSH Past Medical History Medical History (Updated 12/26/24 @ 13:21 by Bong Young DO) Anxiety IBS (irritable bowel syndrome) Constipation Family hx of colon cancer Right lower quadrant abdominal swelling, mass and lump RLQ abdominal pain Healthy adult Surgical History Surgical History History of hysterectomy Hx of tonsillectomy Family History Family History Father Hypertension Mother Patient's mother is in good health Sibling Patient's sister is in good health Social History Social History Smoking packs per day: 1 Smoking cigarettes per day: 20.0 Years smoked: 40 Smoking pack-years: 40.00 Smoking status: Former smoker Tobacco type: cigarettes Alcohol intake: current Drinks per week: 5 Alcohol use details: Wine Substance use: never Substance use type: does not use Living arrangements: with family Gender identity (if verbalized by the patient): Female Spiritual care concerns: No Meds Home Medications and Allergies Home Medications ?Medication ?Instructions ?Recorded ?Confirmed ?Type finasteride 1 mg tablet 1 mg PO DAILY 07/16/22 12/27/24 History dicyclomine 10 mg capsule 10 mg PO QID PRN abdominal pain 10/31/24 12/20/24 Rx #360 caps Allergies Allergy/AdvReac Type Severity Reaction Status Date / Time No Known Allergies Allergy Verified 12/27/24 06:39 Vital Signs Vital Signs - 24 hr 12/27/24 06:34 Temperature 97.7 F Pulse Rate 92 Respiratory Rate 16 Blood Pressure 133/83 Pulse Oximetry 98 Oxygen Delivery Room Air Exam Const: General: comfortable and no acute distress HENMT: Face/Nose/Sinus: Normal nares present Eyes: General: appearance normal, both eyes and all related structures Neck: Neck: no JVD Resp: Auscultation: clear to auscultation bilaterally Cardio: Rate: regular rate Rhythm: regular rhythm GI: Inspection: non-distended GI Palp: Yes Soft to palpation Skin: General skin exam: normal color Neuro: Speech: normal speech Extrem: General: normal to inspection Psych: Mental Status: mental status grossly normal Assessment and Plan Assessment and plan (1) Family hx of colon cancer: Code(s): Z80.0 - Family history of malignant neoplasm of digestive organs Status: Acute Assessment and Plan: colonoscopy (2) Constipation: Code(s): K59.00 - Constipation, unspecified Status: Acute (3) Gas bloat syndrome: Code(s): K92.89 - Other specified diseases of the digestive system Status: Acute Assessment and Plan: egd
--- NOTE | 2024-12-27 07:55 | SUR.OPER ---
EGD [id number]. Colonoscopy start time 0757.
[2024-12-27 08:08] VITALS: BP 104/64; PULSE 83; RESP 25; O2SAT 95
[2024-12-27 08:18] VITALS: BP 119/83; PULSE 91; RESP 23; O2SAT 100
[2024-12-27 08:28] VITALS: BP 148/95; PULSE 90; RESP 18; O2SAT 100
== END 2024-12-27 08:41 | disposition home or self-care (01) ==
PROVIDERS: PCP Physician Assistant; Referring Provider Physician Assistant; Visit Provider Internal Medicine Gastroenterology
PROC: 0DJ08ZZ Inspection of Upper Intestinal Tract, Via Natural or Artificial Opening Endoscopic (ICD-10-PCS; CPT 45378; principal; 2024-12-27 08:00)
DX: Z12.11 Encounter for screening for malignant neoplasm of colon (principal); D12.8 Benign neoplasm of rectum; K63.5 Polyp of colon; K64.8 Other hemorrhoids; K92.89 Other specified diseases of the digestive system; K58.1 Irritable bowel syndrome with constipation; F41.9 Anxiety disorder, unspecified; Z98.890 Other specified postprocedural states; Z87.891 Personal history of nicotine dependence; Z80.0 Family history of malignant neoplasm of digestive organs
CPT/HCPCS: 43239; 45385; 88305; J2704; J7120